=== PATIENT | male | born 1950 | race Caucasian/White ===

== ENCOUNTER → 2018-01-10 | Outpatient (CLI) | payer MEDICARE ==
[~2018-01-10] MED LIST: ALPR0.25 PO; AMIT10TA6 PO; AMIT50TA3 PO; ASPI-516 CHEW; BOSW5TAB PO; BRIL90TA PO; CALC1TAB87 PO; CARV3.12 PO; COLA100C5 PO; CYCL10TA PO; DEXI60CA3; DEXI60CA3 PO; FLUT50SP EACH NARE; HYDR-3583 PO; LATA0.002 EACH EYE; LEVO137T2 PO; LEVOTAB PO; LOSA25TA PO; MULT-65 PO; OSTETAB12 PO; PRAV10TA PO; ROSU10 PO; SIME180C2 PO; TRAM50TA PO
--- NOTE | 2018-01-10 09:21 | RADRPT ---
EXAM DATE/TIME: 01/10/2018 09:08 [facility] COMPARISON: No previous studies available for comparison. INDICATIONS : Evaluate for pneumonia, pneumothorax, and communicable diseases. Pre-op lumbar surgery. MEDICAL HISTORY : None. SURGICAL HISTORY : Rib resection, stent. ENCOUNTER: Initial ACUITY: 1 day PAIN SCORE: 0/10 LOCATION: Bilateral chest FINDINGS: PA and lateral views of the chest demonstrate the lungs to be symmetrically aerated without evidence of mass, infiltrate or effusion. The cardiomediastinal contours are unremarkable. Osseous structure s are intact. CONCLUSION: No acute disease. Pal Johnson MD on January 10, 2018 at 9:19 Board Certified Radiologist. This report was verified electronically.
[2018-01-10 09:48] LABS: BILIRUBIN, URINE NEG (NEG); BLOOD, URINE NEG (NEG); GLUCOSE,URINE NEG (NEG); KETONE, URINE NEG (NEG); MUCUS URINE FEW /lpf (OCC); NITRITE,URINE NEG (NEG); PH, URINE 5.5 (5.0-8.5); URINE COLOR YELLOW (YELLW/STRAW); URINE LEUKOCYTE ESTERASE NEG (NEG)
[2018-01-10 09:51] LABS: AUTOMATED NEUTROPHIL # 4.5 TH/MM3 (1.8-7.7); BASOPHIL % 0.5 % (0.0-2.0); EOSINOPHIL # 0.2 TH/MM3 (0-0.4); EOSINOPHIL % 3.2 % (0.0-4.0); HEMATOCRIT 34.1 % (39.0-51.0); HEMOGLOBIN 11.5 GM/DL (13.0-17.0); LYMPH % 13.4 % (9.0-44.0); LYMPHOCYTE # 0.8 TH/MM3 (1.0-4.8); MEAN CELL VOLUME 91.8 FL (80.0-100.0); MEAN CORPUSCULAR HGB CONC 33.8 % (32.0-36.0); MONO % 8.1 % (0.0-8.0); MONOCYTE # 0.5 TH/MM3 (0-0.9); NEUT % 74.8 % (16.0-70.0); PLATELET COUNT 444 TH/MM3 (150-450); RED BLOOD COUNT 3.72 MIL/MM3 (4.50-5.90); RED CELL DISTRIBUTION WIDTH 13.6 % (11.6-17.2)
[2018-01-10 10:07] LABS: PROTHROMBIN TIME - PATIENT 10.1 SEC (9.8-11.6)
[2018-01-10 10:18] LABS: ALBUMIN 3.3 GM/DL (3.4-5.0); AST (GOT) 16 U/L (15-37); BICARBONATE 31.9 MEQ/L (21.0-32.0); BLOOD UREA NITROGEN 23 MG/DL (7-18); CALCIUM 9.3 MG/DL (8.5-10.1); CHLORIDE 106 MEQ/L (98-107); GLOMERULAR FILTRATION RATE 60 ML/MIN (>89); GLUCOSE,FASTING 100 MG/DL (74-99); SODIUM (NA) 142 MEQ/L (136-145)
[2018-01-10 10:19] LABS: ALT (GPT) 28 U/L (12-78)
[2018-01-10 10:22] LABS: ALKALINE PHOSPHATASE 88 U/L (45-117); TOTAL BILIRUBIN ADULT 0.1 MG/DL (0.2-1.0)
--- NOTE | 2018-01-11 09:23 | EKG ---
Date Performed: 01/10/2018 Time Performed: 08:12:57 PTAGE: 67 years EKG: Sinus rhythm INDETERMINATE AXIS MODERATE T-WAVE ABNORMALITY, CONSIDER ANTERIOR ISCHEMIA ABNORMAL ECG Compared to PREVIOUS TRACING , anterior T-wave inversion is now present. Consider anterior ischemia. PREVIOUS TRACIN01/24/2006 14.39 DOCTOR: Vineet Enciso Interpretating Date/Time 01/11/2018 09:23:03
== END ==
LOC: CPRE 07:47
PROVIDERS: ATTEND Neurological Surgery
DX: Z01.812 Encounter for preprocedural laboratory examination (principal); Z01.810 Encounter for preprocedural cardiovascular examination; Z01.811 Encounter for preprocedural respiratory examination; Z01.818 Encounter for other preprocedural examination; Z79.01 Long term (current) use of anticoagulants; M43.10 Spondylolisthesis, site unspecified
CPT/HCPCS: 36415; 71046; 80053; 81001; 85025; 85610; 85730; 87640; 87641; 93005

== ENCOUNTER 2018-01-16 06:05 | Inpatient (IN) | payer MEDICARE ==
[~2018-01-16] VITALS: Ht 172.7 cm; Wt 67.5 kg
[~2018-01-16 06:05] MED LIST changes: -ALPR0.25 PO; -DEXI60CA3; -HYDR-3583 PO; -LATA0.002 EACH EYE; -OSTETAB12 PO; -PRAV10TA PO
[2018-01-16] MEDS: SODIUM CHLOR 0.9% 1000 ML INJ 1,000 ML IV SCH (06:30)
[2018-01-16] MEDS ORDERED: LACTATED RINGER'S 1000 ML IV PRN (06:30)
[2018-01-16] MEDS ORDERED: VANCOMYCIN 1000 MG/NS 250 ML ON-CALL IV SCH ×2 (06:30)
[2018-01-16] MEDS ORDERED: METOPROLOL TARTRATE 25 MG TAB PO PRN (06:30)
[2018-01-16] MEDS ORDERED: POVIDONE IODINE 5% (ANTISEPSIS KIT) 4 APPLICATIONS EACH NARE PRN (06:30)
[2018-01-16] MEDS ORDERED: CHLORHEXIDINE GLUCONATE 2 % 1 PACK (2 CLOTHS) TOPICAL PRN (06:30)
[2018-01-16] MEDS ORDERED: SODIUM CHLORID 0.9% 500 ML IV PRN (06:30)
[2018-01-16] MEDS ORDERED: ACETAMINOPHEN 1000 MG/100 ML 100 ML IV ONE (07:03)
[2018-01-16] MEDS ORDERED: PROPOFOL 500 MG/50 ML INJ 150 ML ONE (07:03)
[2018-01-16] MEDS ORDERED: SUFentanil INJ 250 MCG/5 ML AMP ONE (07:04)
[2018-01-16] MEDS ORDERED: LATA0.002 EACH EYE (07:04)
[2018-01-16] MEDS ORDERED: ARTIFICIAL TEARS OPTH OINT 3.5 APPLIC/3.5 GM TUBO ONE (07:04)
[2018-01-16] MEDS ORDERED: HYDROmorphone HCL PF 2 MG/ML VIAL ONE (07:05)
[2018-01-16] MEDS ORDERED: ceFAZolin 2 GM PREMIX 100 ML ONE (07:19)
[2018-01-16] MEDS ORDERED: VANCOMYCIN HCL 1000 MG VIAL ONE (07:19)
[2018-01-16] MEDS ORDERED: THROMBIN (TOPICAL) 5,000 UNIT VIAL ONE (07:19)
[2018-01-16] MEDS ORDERED: GENTAMICIN SULFATE 80 MG/2 ML VIAL ONE (07:20)
[2018-01-16] MEDS ORDERED: GELFOAM SIZE 100 ONE (07:20)
[2018-01-16] MEDS ORDERED: BUPIVACAINE/EPINEPHRINE 0.5% PF 30 ML VIAL ONE (07:20)
[2018-01-16] MEDS ORDERED: HEPARIN SODIUM - SQ 10,000 UNITS/ML VIAL ONE (07:20)
[2018-01-16] MEDS ORDERED: PROPOFOL 200 MG/20 ML AMP IV ONE (12:00)
[2018-01-16] MEDS ORDERED: ONDANSETRON HCL 4 MG/2 ML VIAL IV ONE (12:00)
[2018-01-16] MEDS ORDERED: ROCURONIUM INJ 50 MG/5 ML SYRINGE IV PUSH ONE (12:00)
[2018-01-16] MEDS ORDERED: NORMOSOL R INJ 1,000 ML IV ONE (12:00)
[2018-01-16] MEDS ORDERED: ceFAZolin INJ 1,000 MG VIAL IV ONE (12:00)
[2018-01-16] MEDS ORDERED: LIDOCAINE HCL 1% PF 5 ML SYRINGE OTHER ONE (12:00)
[2018-01-16] MEDS ORDERED: DEXAMETHASONE SOD PHOS 4 MG/ML VIAL IV ONE (12:00)
[2018-01-16] MEDS ORDERED: SODIUM CHLOR 0.9% 250 ML INJ 250 ML IV ONE (12:00)
[2018-01-16] MEDS ORDERED: LACTATED RINGER'S 1000 ML INJ 2,000 ML IV ONE (12:00)
[2018-01-16] MEDS ORDERED: METOPROLOL TARTRATE 5 MG/5 ML VIAL IV ONE (12:00)
[2018-01-16] MEDS ORDERED: PHENYLEPH/NS 1000 MCG/10 ML SYR IV ONE (12:00)
[2018-01-16] MEDS ORDERED: ESMOLOL HCL 100 MG/10 ML VIAL IV ONE (12:00)
[2018-01-16] MEDS ORDERED: PHENYLEPHRINE HCL 10 MG/ML VIAL IV ONE (12:00)
[2018-01-16] MEDS ORDERED: SODIUM CHLORID 0.9% 500 ML INJ 500 ML IV ONE (12:00)
[2018-01-16] MEDS ORDERED: ceFAZolin INJ 1,000 MG VIAL IRRIGATION ONE (14:22)
[2018-01-16 14:48] LABS: HEMATOCRIT 31.8 % (39.0-51.0); HEMOGLOBIN 10.9 GM/DL (13.0-17.0)
[2018-01-16] MEDS ORDERED: DO NOT ADM ANY ANTICOAGULANT DRUGS PRN (16:39)
[2018-01-16] MEDS ORDERED: MIDAZOLAM HCL 2 MG/2 ML VIAL ONE (16:49)
[2018-01-16] MEDS ORDERED: MORPHINE SULFATE 4 MG/ML INJ ONE (16:49)
[2018-01-16] MEDS ORDERED: PCA - TOTAL MG DILAUDID DELIVERED PER SHIFT SCH (17:15)
[2018-01-16] MEDS ORDERED: RESP: ALBUTEROL 2.5 MG/3 ML NEB (PRN) INH (17:15)
[2018-01-16] MEDS ORDERED: NALOXONE HCL 0.4 MG/ML AMP IV PUSH PRN ×2 (17:15→19:00)
[2018-01-16] MEDS ORDERED: MORPHINE SULFATE 4 MG/ML INJ IV PUSH PRN ×2 (17:15)
[2018-01-16] MEDS ORDERED: HYDROmorphone HCL PCA 6 MG/30 ML IV SCH (17:15)
[2018-01-16] MEDS ORDERED: diphenhydrAMINE HCL 50 MG/ML VIAL IV PUSH PRN (17:15)
[2018-01-16] MEDS ORDERED: ACETAMINOPHEN 325 MG TAB PO PRN (17:15)
[2018-01-16] MEDS ORDERED: MORPHINE SULFATE 30 MG/30 ML PCA ONE (17:40)
--- NOTE | 2018-01-16 17:43 | PD.OP ---
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 Microsurgical dissection Anesthesia: general Surgeon: Hamilton Jones Ginning Operator(s): Shruti Whitehead Operation and Findings: INDICATIONS FOR THE SURGICAL PROCEDURE Mr Monique is a 67 year-old male who presented with intractable mechanical back pain and hernandez evidence of L2, L3, L4 lower extremity radiculopathy. He had history of a L4-5, L5-S1 laminectomy and fusion done years ago. He has failed maximum nonsurgical management including multiple modalities of conservative treatment as well as pain management interventions by an interventional pain specialist. A surgical decompression and arthrodhesis were indicated as a last resort. The [id number] details of the procedure, indications, alternatives, risks and potential complications were fully discussed with the patient. The patient fully understood. All the questions were answered. No guarantees were given. He voiced requesting the procedure and provided informed consents. He was offered the alternative of delaying the procedure and continuing with nonsurgical management. DETAILS OF THE SURGICAL PROCEDURE Prior to the procedure, the procedure, risks, and potential complications revisited with the patient. Placement of electrodes for intraoperative neurophysiological monitoring was completed. The patient was taken to the operative room, and following induction of general anesthesia, endotracheal intubation was performed. A Best catheter, bilateral MAXIMO hose and sequential compression devices were placed and kept throughout the procedure. The patient was positioned prone, over a Khai table over a bolsters. All pressure in the preoperative surgical holding room points were carefully padded with eggcrate and gel mattress. The eyes were tapped shut after ointment was applied by the anesthesiologist to prevent corneal abrasion. A Tracy hugger was placed over the expossed lower body to maintain control of the core body temperature. The electrophysiological team placed the needles and electrodes in their proper location and baseline SSEP's and motor evoked potentials were registered. The entrance to each pedicles was marked using a C arm. The lumbar region was prepped and draped in the usual sterile fashion. The surgical procedure was performed in several steps as follow: SURGICAL APPROACH Once the patient was positioned, a localizing cross-table lateral and AP x-ray was performed with a C-arm. Two paramedian small incisions were outlined on the skin approximately 3cm from the midline. The skin incisions were made with a # 10 blade. Small bleeders were controlled with the cautery. The dissection was then carried out into deeper planes and through the thoracolumbar fascia with a Bovie. The intermuscular septum was identified and the muscles were blunted dissected along the septum. The facets and transverse process of L1-L2, L2-L3, L3-4 were exposed and the proper anatomical landmarks were identidied. A microsurgical self-retaining retractor was placed on the incision, and a localizing lateralizing cross-table x-ray was performed with an instrument underneath a lamina of the lumbar spine of L4. The prior instrumentation was carefully exposed and a self-retaining retractor was placed on each incision. At this point of the procedure, the rods were cut, just above the cross link of the prior instrumentation. Then, the caps of the previously placed screws were sequentially removed allowing removal of the rods, as the prior rods were larger , and not compatible with the current contemporary instrumentation. INSTRUMENTAL FIXATION At this point in the procedure, placement of bilateral transpedicular screws was necessary for stabilization of the spine. Initially, the entry point for the screw was selected anatomically at the junction of the facet, with the transverse process, and the pars interarticularis at L1, L2, L3, and L4. This was started with a Giamshetti needle, followed by the use of K wire. A tap was used to create the threads for the screws. Finally bilateral transpedicular screws were carefully placed bilaterally at L1, L2, L3, and L4 under fluoroscopic visualization. An appropriate purchase was achieved with all screws. The position of each screw was assessed anatomically with an AP, lateral , oblique Xrays. An intraoperative scan view of the spine was then performed using the iso-centric c-arm. Each screw was then assessed electrophysiologically stimulating each screw with a nerve stimulator. SURGICAL DECOMPRESSION There was significant mass effect with compression of the neural structures. In order to relieve neural compression, it was necessary to perform a decompressive laminectomy, with decompression of the spinal canal and bilateral lateral recesses. Note that the scope of such decompression was significantly more extensive than the minimal exposure necessary to perform an interbody fusion, as there was extreme facet arthropathy with severe degeneration of the disk spaces and stenosis cause by the hyperthrophic joint facets. At this point of the procedure the operative microscope was draped in the usual sterile fashion and brought to the field. The rest of the surgical procedure was performed using microdissection technique with the exception of the closure. Under the operating microscope, a bilateral decompressive laminectomy was carried out at L1-L2, L2-L3, L3-4 as follow: The laminae, base of the spinous processes and facets were carefully drilled exposing the ligamentum flavum. The facets were abnormal with severe spondylolisthesis and gross mechanical instability. A large disk protusion was compressing the neural structures and exiting nerve roots at each level. A near complete facetectomy was necessary resulting in further mechanical instability. The ligamentum flavum appeared hypertrophic, resulting on mass effect on the dorsal surface of the neural structures. The superior free border of the ligamentum flavum was elevated with a ligament dissector and the ligamentum flavum was removed with a 3 and 4 mm Kerrison forceps. The ligament was very adherent to the dural sac and during the dissection, ans extreme care was taken during the dissection. The exiting nerve roots were identified, and a wide foraminotomy was performed with a Kerrison in their trajectory towards the neural foramen. Epidural veins located laterally to the dural sac were coagulated with the bipolar cautery, and then incised using microscissors. Gentle medial retraction of the dural sac allowed me to expose the disc space for the discectomy. Upon completion of the discectomy, an excellent decompression of the neural structures was achieved. Increased motion was noted thorough the procedure, which was consistent with mechanical instability at L1-L2, L2-L3, L3-4. INTERBODY ARTHRODHESIS In order to correct the narrowing of the disk space and maintain distraction of the space, and to achieve a solid interbody fusion, it was necessary the insertion of an interbody device into the disk space. Otherwise, the disk space would collapse, compromising the result of the surgical procedure. At this point of the procedure, the annulus fibrosus of the disk was carefully coagulated with a bipolar cautery and incised using an 11 bladed knife. Then, a microdiscectomy was carried out in a standard fashion using a combination of straight and up-biting pituitary forceps. A reverse angle curette was applied underneath the posterior longitudinal ligament, and used to push the disk fragments into the disk space, so they can be safely removed with a pituitary forceps. Once the discectomy was completed, it was necessary to decorticate the endplates, in order to eliminate the cartilaginous endplate and to expose healthy bone appropriate to perform the interbody fusion. The endplates at L1-L2 , L2-L3, L3-4 were then thoroughly decorticated using increasing size bone karma and ring curets, eliminating the cartilaginous fragments from both, the superior and inferior endplates. A disk space distractor was applied to the pedicle screws and gentle distraction was applied. This maneuver was assisted by the use of a disk distractor. Increased motility was noted at the disk, which was consistent with instability due to facet arthropathy. Once a thorough preparation of the disk space was achieved, the disk space was irrigated with antibiotic solution, and the interbody fusion was performed by carefully impacting PPEK cages filled with autologous iliac crest bone graft. The use of several shoe impactors with different angulation, allowed me for an excellent, proper position of the interbody cages L1-L2, L2-L3, L3-4. A solid position of the cage with good purchase was achieved. The position of the cages were assessed anatomically with a probe and radiologically with the C-arm. POSTEROLATERAL FUSION The posterolateral fusion is a critical component to the procedure, to prevent future fatigue and failure of the instrumental fixation. Initially, the transverse processes of the vertebral bodies, lateral surface of the facets and the lateral gutters of the spine were carefully cleaned, eliminating all soft tissue and muscle attachments. The area was then irrigated with a large amount of antibiotic solution. Subsequently, the transverse processes, lateral surface of the facets, and lateral gutters of the spine were thoroughly decorticated using the TPS drill with a 5mm cutting adam, exposing cancellous bone, in preparation for the posterolateral fusion. The incision was again irrigated with antibiotic solution. Then, the posterolateral fusion was then performed by carefully packing the lateral gutters of the spine at L1-L2, L2-L3, L3-L4 with autologous crest bone combined with demineralized bone matrix. I packed as much bone as possible. COMPLETION OF THE INSTRUMENTATION AND CLOSURE The rods were brought to the field, applied to all the screws, and the screw caps were sequentially applied. Compression was performed between the pedicle screws, and final tightening of the screws was completed using a torque wrench. The incision was again thoroughly irrigated with several liters of antibiotic solution, and hemostasis secured with the bipolar cautery. A Valsalva Maneuver performed by the anesthesiologist failed to show any evidence of cerebrospinal fluid leak or bleeding. A 7 mm Khai-Pena drain was left in the epidural space and externalized through a separate stab incision. The incision was then closed in planes. 0 Vicryl was used in an interrupted fashion to close the thoracolumbar fascia and the superficial fascia. The subcutaneous tissue was then approximated using 3-0 Vicryl in an interrupted fashion. Special care was taken to avoid space. The skin was then closed with 4-0 Vicryl in a running, subcuticular fashion. Dermabond was applied to the skin. Each plane of closure was irrigated with antibiotic solution. At the end of the procedure the sponge, needle and instrument counts were all correct. Estimated blood loss was 450-500 cc. No blood transfusion was given. The entire procedure was performed using continuous electrophysiological monitoring of the somatosensorial evoked potentials and EMG. The patient received prophylactic antibiotics. The patient was then extubated and transferred to the recovery room in stable condition. Hamilton Jones MD Jan 16, 2018 17:43
[2018-01-16 17:56] LABS: HEMATOCRIT 32.7 % (39.0-51.0); HEMOGLOBIN 10.9 GM/DL (13.0-17.0); MEAN CELL VOLUME 91.9 FL (80.0-100.0); MEAN CORPUSCULAR HEMOGLOBIN 30.6 PG (27.0-34.0); MEAN CORPUSCULAR HGB CONC 33.3 % (32.0-36.0); MEAN PLATELET VOLUME 7.5 FL (7.0-11.0); PLATELET COUNT 262 TH/MM3 (150-450); RED BLOOD COUNT 3.56 MIL/MM3 (4.50-5.90); WHITE BLOOD COUNT 15.7 TH/MM3 (4.0-11.0)
[2018-01-16] MEDS: NS + KCL 20 MEQ INJ 1,000 ML IV SCH (18:00)
[2018-01-16 18:14] LABS: BICARBONATE 24.7 MEQ/L (21.0-32.0); CALCIUM 8.5 MG/DL (8.5-10.1); CREATININE 1.28 MG/DL (0.60-1.30)
[2018-01-16 20:00] VITALS: BP 127/85; PULSE 88; RESP 18; TEMP 97.1; O2SAT 100
[2018-01-16] MEDS ORDERED: SIMETHICONE 180 MG PO PRN (20:00)
[2018-01-16] MEDS ORDERED: SIMETHICONE 125 MG CHEWABLE TAB PO PRN (20:00)
--- NOTE | 2018-01-16 20:26 | RADRPT ---
EXAM DATE/TIME: 01/16/2018 10:02 [facility] COMPARISON: No previous studies available for comparison. INDICATIONS : L1-2, L2-3, L3-4 posterior fusion. MEDICAL HISTORY : Carcinoma, thyroid. Myocardial infarction. SURGICAL HISTORY : Fusion, cervical. Fusion, lumbar. ENCOUNTER: Initial ACUITY: 1 day PAIN SCORE: Non-responsive. LOCATION: Lumbar spine. FINDINGS: 3 images of the lumbar region recorded digitally using C-arm in the operating room after placement of multilevel transpedicular screws. CONCLUSION: Intraoperative images. Jaime Carrasquillo MD on January 16, 2018 at 20:24 Board Certified Radiologist. This report was verified electronically.
[2018-01-16] MEDS: TICAGRELOR 90 MG TAB PO SCH (21:00)
[2018-01-16] MEDS: LATANOPROST 0.005% OPHT SOLN 2.5 ML BTL EACH EYE SCH (21:00)
[2018-01-16] MEDS: CARVEDILOL 3.125 MG TAB PO SCH (21:34)
[2018-01-16] MEDS: CYCLOBENZAPRINE HCL 10 MG TAB PO SCH (21:34)
[2018-01-16] MEDS: ceFAZolin 2 GM PREMIX 50 ML IV SCH (21:34)
[2018-01-16] MEDS: AMITRIPTYLINE HCL 10 MG TAB PO SCH (21:43)
[2018-01-16] MEDS: PCA - TOTAL MG MORPHINE DELIVERED PER SHIFT SCH (21:59)
[2018-01-17] VITALS (7 sets, daily range): BP systolic 99–125; BP diastolic 62–80; PULSE 80–107; RESP 17–18; TEMP 97.6–98.3; O2SAT 92–100
[2018-01-17] MEDS: ceFAZolin 2 GM PREMIX 50 ML IV SCH ×2 (03:37→14:01)
[2018-01-17] MEDS: NS + KCL 20 MEQ INJ 1,000 ML IV SCH ×3 (03:37→23:58)
[2018-01-17] MEDS: MORPHINE SULFATE 30 MG/30 ML PCA IV SCH ×3 (03:50→20:51)
[2018-01-17] MEDS: PCA - TOTAL MG MORPHINE DELIVERED PER SHIFT SCH ×3 (06:00→21:11)
[2018-01-17] MEDS: SODIUM CHLOR 0.9% 1000 ML INJ 1,000 ML IV SCH (06:30)
[2018-01-17] MEDS: LEVOTHYROXINE SODIUM 25 MCG TAB PO SCH (06:38)
[2018-01-17] MEDS: LEVOTHYROXINE SODIUM 112 MCG TAB PO SCH (06:38)
[2018-01-17 07:50] LABS: AUTOMATED NEUTROPHIL # 6.2 TH/MM3 (1.8-7.7); BASOPHIL % 0.1 % (0.0-2.0); EOSINOPHIL # 0.1 TH/MM3 (0-0.4); EOSINOPHIL % 1.4 % (0.0-4.0); HEMATOCRIT 26.8 % (39.0-51.0); HEMOGLOBIN 9.1 GM/DL (13.0-17.0); LYMPH % 12.7 % (9.0-44.0); MEAN CELL VOLUME 91.8 FL (80.0-100.0); MEAN CORPUSCULAR HEMOGLOBIN 31.2 PG (27.0-34.0); MONO % 8.6 % (0.0-8.0); MONOCYTE # 0.7 TH/MM3 (0-0.9); NEUT % 77.2 % (16.0-70.0); PLATELET COUNT 187 TH/MM3 (150-450); RED BLOOD COUNT 2.92 MIL/MM3 (4.50-5.90); RED CELL DISTRIBUTION WIDTH 14.2 % (11.6-17.2); WHITE BLOOD COUNT 8.1 TH/MM3 (4.0-11.0)
[2018-01-17 08:23] LABS: BICARBONATE 27.7 MEQ/L (21.0-32.0); CALCIUM 7.4 MG/DL (8.5-10.1); CREATININE 1.25 MG/DL (0.60-1.30)
[2018-01-17 08:35] LABS: CALCIUM-PROTEIN CORRECTED 8.4 MG/DL (8.5-10.1); TOTAL PROTEIN 5.3 GM/DL (6.4-8.2)
[2018-01-17] MEDS: TICAGRELOR 90 MG TAB PO SCH ×2 (08:44→21:00)
[2018-01-17] MEDS: CARVEDILOL 3.125 MG TAB PO SCH ×2 (08:45→21:03)
[2018-01-17] MEDS: LOSARTAN 25 MG TAB PO SCH (08:45)
[2018-01-17] MEDS: CYCLOBENZAPRINE HCL 10 MG TAB PO SCH ×3 (08:46→17:34)
[2018-01-17] MEDS: PANTOPRAZOLE SOD 40 MG DELAYED RELEASE TAB PO SCH (08:46)
[2018-01-17] MEDS: DOCUSATE SODIUM 100 MG CAP PO SCH (08:46)
[2018-01-17] MEDS: ATORVASTATIN 20 MG TAB PO SCH (08:46)
[2018-01-17] MEDS: MULTIVITAMIN TAB PO SCH (08:47)
[2018-01-17] MEDS: CETIRIZINE HCL 10 MG TAB PO SCH (08:47)
[2018-01-17] MEDS: CALCIUM/VITAMIN D 250 MG/125 U TAB PO SCH (08:50)
[2018-01-17] MEDS ORDERED: PANTOPRAZOLE SODIUM 40 MG VIAL IVP SCH (09:00)
[2018-01-17] MEDS ORDERED: D3 PO SCH (09:00)
[2018-01-17] MEDS ORDERED: BOSWELLIA SERRA PO SCH (09:00)
[2018-01-17] MEDS ORDERED: GLUCOSAMINE PO SCH (09:00)
[2018-01-17] MEDS ORDERED: CALCIUM CHLORIDE INJ 1 GM in SODIUM CHLORIDE 0.9% INJ 100 ML IV ONE (09:45)
[2018-01-17] MEDS ORDERED: HYDR-3583 PO (10:35)
[2018-01-17] MEDS ORDERED: MORPHINE SULFATE 2 MG/ML INJ IV PUSH PRN (13:45)
[2018-01-17] MEDS ORDERED: ACETAMINOPHEN/HYDROcodone 325 MG/10 MG TAB PO PRN (13:45)
--- NOTE | 2018-01-17 13:47 | HHI.NSPN ---
(Charlee Esteves) Note Status Status: Progress Note (Charlee Esteves) Interval History Interval History Mr. Monique is s/p L1-L2, L2-L3, L3-L4 laminectomy, interbody arthrodhesis using PEEK cage and autologous bone graft, L3-4, L4-L5 instrumental fixation using transpedicular screws and rods, L1-L2, L2-L3, L3-L4 posterolateral fusion using autologous bone graft and demineralized bone matrix, microsurgical dissection on Jan 16, 2018 for degenerative spondylolisthesis 01/17: doing well, surgical pain controlled on ICU RN, awaiting custom brace but requesting to get out of bed now (Charlee Esteves) Labs, Micro, & Vital Signs Results Date Time Temp Pulse Resp B/P (MAP) Pulse Ox O2 Delivery O2 Flow Rate FiO2 01/17/18 11:51 19 01/17/18 09:28 98 Nasal Cannula 3.00 01/17/18 08:00 98.0 94 18 101/75 (84) 98 01/17/18 06:00 14 01/17/18 05:00 97.6 94 18 99/64 (76) 100 01/17/18 04:48 Nasal Cannula 3.00 01/17/18 03:50 14 01/17/18 00:00 98.0 80 17 125/80 (95) 100 01/16/18 21:59 14 01/16/18 20:00 97.1 88 18 127/85 (99) 100 01/16/18 18:45 98.0 88 16 125/87 (100) 100 Nasal Cannula 3 01/16/18 18:15 87 16 126/87 (100) 100 Nasal Cannula 3 01/16/18 17:45 86 15 122/80 (94) 100 Nasal Cannula 3 01/16/18 17:30 90 16 122/85 (97) 100 Nasal Cannula 3 01/16/18 17:15 95 16 127/82 (97) 99 Nasal Cannula 3 01/16/18 17:00 87 17 121/89 (100) 99 Nasal Cannula 3 01/16/18 16:45 90 15 121/89 (100) 97 Nasal Cannula 3 01/16/18 16:39 97.6 107 15 117/83 (94) 94 Nasal Cannula 3 01/18/18 07:00 Intake Total 110 ml Output Total 90 ml Balance 20 ml Constitutional Vital Signs Date Time Temp Pulse Resp B/P (MAP) Pulse Ox O2 Delivery O2 Flow Rate FiO2 01/17/18 11:51 19 01/17/18 09:28 98 Nasal Cannula 3.00 01/17/18 08:00 98.0 94 18 101/75 (84) 98 01/17/18 06:00 14 01/17/18 05:00 97.6 94 18 99/64 (76) 100 01/17/18 04:48 Nasal Cannula 3.00 01/17/18 03:50 14 01/17/18 00:00 98.0 80 17 125/80 (95) 100 01/16/18 21:59 14 01/16/18 20:00 97.1 88 18 127/85 (99) 100 01/16/18 18:45 98.0 88 16 125/87 (100) 100 Nasal Cannula 3 01/16/18 18:15 87 16 126/87 (100) 100 Nasal Cannula 3 01/16/18 17:45 86 15 122/80 (94) 100 Nasal Cannula 3 01/16/18 17:30 90 16 122/85 (97) 100 Nasal Cannula 3 01/16/18 17:15 95 16 127/82 (97) 99 Nasal Cannula 3 01/16/18 17:00 87 17 121/89 (100) 99 Nasal Cannula 3 01/16/18 16:45 90 15 121/89 (100) 97 Nasal Cannula 3 01/16/18 16:39 97.6 107 15 117/83 (94) 94 Nasal Cannula 3 01/18/18 07:00 Intake Total 110 ml Output Total 90 ml Balance 20 ml (Charlee Esteves) Physical Exam Mr. Monique is alert, awake and oriented. Speech is fluent. Cranial nerve: pupil equal, round and reactive to light. Extra-ocular movements are intact.Facial motor are normal and symmetrical. Gross hearing appears intact. Motor: moving all four extremities well Heart: regular rate Resp: clear Skin: no cyanosis, warm and dry (Charlee Esteves) Medications Current Medications Current Medications Medications (Trade) Dose Ordered Sig/Edmund Route PRN Reason Start Time Stop Time Status Last Admin Dose Admin Metoprolol Tartrate (Lopressor) 25 mg BUSINESS SOLUTION ANALYST PRN PO SEE LABEL COMMENTS 01/16/18 06:30 01/19/18 06:29 Sodium Chloride 1,000 ml @ 30 mls/hr Q24H IV 01/16/18 06:30 Potassium Chloride/Sodium Chloride 1,000 ml @ 100 mls/hr Q10H IV 01/16/18 19:00 01/17/18 03:37 Pantoprazole Sodium (Protonix Inj) 40 mg DAILY IVP 01/17/18 09:00 Morphine Sulfate (Morphine Inj) 2 mg Q2H PRN IV PUSH PAIN SCALE 1 TO 6 01/16/18 17:15 Morphine Sulfate (Morphine Inj) 4 mg Q2H PRN IV PUSH PAIN SCALE 7 TO 10 01/16/18 17:15 01/17/18 03:35 Acetaminophen (Tylenol) 650 mg Q4H PRN PO TEMPERATURE > 101.5 F 01/16/18 17:15 Albuterol Sulfate (Albuterol Neb) 2.5 mg Q4HR NEB PRN INH WHEEZING 01/16/18 17:15 Amitriptyline HCl (Elavil) 10 mg HS PO 01/16/18 21:00 01/16/18 21:43 Calcium/Vitamin D (Oscal-D 250-125) 1 mg DAILY PO 01/17/18 09:00 Carvedilol (Coreg) 3.125 mg BID PO 01/16/18 21:00 01/17/18 08:45 Cyclobenzaprine HCl (Flexeril) 10 mg TID PO 01/16/18 18:00 01/17/18 08:46 Docusate Sodium (Colace) 100 mg DAILY PO 01/17/18 09:00 01/17/18 08:46 Latanoprost (Xalatan 0.005% Opt Soln) 1 drop HS EACH EYE 01/16/18 21:00 Losartan Potassium (Cozaar) 25 mg DAILY PO 01/17/18 09:00 Ticagrelor (Brilinta) 90 mg BID PO 01/16/18 21:00 Pantoprazole Sodium (Protonix) 40 mg DAILY PO 01/17/18 09:00 Cetirizine HCl (ZyrTEC) 10 mg DAILY PO 01/17/18 09:00 01/17/18 08:47 Levothyroxine Sodium (Synthroid) 112 mcg DAILY@0600 PO 01/17/18 06:00 01/17/18 06:38 Multivitamins (Theragran) 1 tab DAILY PO 01/17/18 09:00 01/17/18 08:47 Atorvastatin Calcium (Lipitor) 20 mg DAILY PO 01/17/18 09:00 01/17/18 08:46 Miscellaneous Information ALL NURSING DEPARTME... UNSCH PRN .XX SEE LABEL COMMENTS 01/16/18 16:39 01/17/18 16:38 Morphine Sulfate (Morphine 1 Mg/ ml ICU RN) 30 mg UNSCH IV 01/16/18 19:00 01/17/18 11:51 ICU RN Dosage Infused (Pha) 1 Q8HR .XX 01/16/18 22:00 01/17/18 06:00 Naloxone HCl (Narcan Inj) 0.4 mg UNSCH PRN IV PUSH RESPIRATORY RATE LESS THAN 10 01/16/18 19:00 Levothyroxine Sodium (Synthroid) 25 mcg DAILY@0600 PO 01/17/18 06:00 01/17/18 06:38 Simethicone (Phazyme Chew) 187.5 mg QID PRN PO GAS RETENTION 01/16/18 20:00 (Charlee Esteves) Medical Decision Making MDM Remarks 67 y/o male s/p L1-L2, L2-L3, L3-L4 laminectomy, interbody arthrodhesis using PEEK cage and autologous bone graft, L3-4, L4-L5 instrumental fixation using transpedicular screws and rods, L1-L2, L2-L3, L3-L4 posterolateral fusion using autologous bone graft and demineralized bone matrix, microsurgical dissection 01/16/18 (Charlee Esteves) Plan Plan Remarks cont current pain regimen PT, TLSO when out of bed cont SCDs and TEDs for dvt prophylaxis dc hyde once ambulatory IS every hour cont CATY draining (Charlee Esteves) Attending Statement The exam, history, and the medical decision-making described in the above note were completed with the assistance of the mid-level provider. I reviewed and agree with the findings presented. I attest that I had a [id number] encounter with the patient on the same day, and personally performed and documented my assessment and findings in the medical record. (Hamilton Jones MD) Charlee Esteves Jan 17, 2018 13:47 Hamilton Jones MD Jan 18, 2018 20:58
--- NOTE | 2018-01-17 15:44 | PD.CONS ---
HPI Service [facility] Consult Requested By Dr Jones Reason for Consult Medical management. Primary Care Physician Dayday Holliday MD Diagnoses: History of Present Illness This is a 67 yo male with pmh of CAD, hypothyroidism, previous lumbar laminectomy who presents to [facility] for elective lumbar spine surgery. The patient states was having severe lumbar spine and observable deformity at the lumbar spine which progressively got worst. The patient underwent lumbar spine fusion. Complains of back pain worst with movement. Denies cp/sob, fevers, chills. Review of Systems As per HPI, other systems reviewed by me and negative. Past Family Social History Allergies: Coded Allergies: metoclopramide (Verified Allergy, Severe, EFFECTS NERVES, 01/16/18) hydromorphone (Verified Adverse Reaction, Severe, SEVERE NAUSEA, 01/16/18) promethazine (Verified Adverse Reaction, Severe, NAUSEA, 01/16/18) Past Medical History 1. CAD. 2. Hypertension. 3. GA status post stent placement. 4. Hypothyroidism. 5. Glaucoma. Past Surgical History 1. Cardiac stent in 2002. 2. History of lumbar laminectomy. 3. C5-C6 and C6 that 7 anterior cervical discectomy and arthrodesis. Reported Medications Reported Meds & Active Scripts Active Hydrocodone-Acetaminophen 10-325 mg Tab 1 Tab PO Q8HR Reported Latanoprost Opth Drops (Latanoprost) 0.005% Drops 1 Drop EACH EYE HS Refrigerate until opened. Tramadol (Tramadol HCl) 50 Mg Tab 50 Mg PO Q4H PRN Osteo Bi-Flex Caplet (Glucosamine/D3/Boswellia Rosy) 1,500 Mg-400 Unit-100 Mg Tablet 1 Cap PO DAILY Dexilant (Dexlansoprazole) 60 Mg Luis.bp 60 Mg PO DAILY Crestor (Rosuvastatin Calcium) 10 Mg Tab 10 Mg PO DAILY Multi-Vitamin Daily (Multiple Vitamin) 1 Tab Tab 1 Tab PO DAILY Colace (Docusate Sodium) 100 Mg Capsule 100 Mg PO DAILY Flexeril (Cyclobenzaprine HCl) 10 Mg Tab 10 Mg PO TID Simethicone 180 Mg Cap 180 Mg PO QID PRN Calcium 600 with Vitamin D (Calcium Carbonate-Cholecalciferol) 600-400 mg-Unit Tab 1 Tab PO DAILY Levocetirizine 5 Mg Tab 5 Mg PO DAILY Amitriptyline (Amitriptyline HCl) 10 Mg Tab 10 Mg PO HS Aspirin 81 Mg Chew 81 Mg CHEW DAILY Levothyroxine (Levothyroxine Sodium) 137 Mcg Tab 137 Mcg PO DAILY Losartan (Losartan Potassium) 25 Mg Tab 25 Mg PO DAILY Carvedilol 3.125 Mg Tab 3.125 Mg PO BID Brilinta (Ticagrelor) 90 Mg Tab 90 Mg PO BID Active Ordered Medications Current Medications Medications (Trade) Dose Ordered Sig/Edmund Route Start Time Stop Time Status Last Admin (Lopressor) 25 mg RFID MANAGER PRN PO 01/16/18 06:30 01/19/18 06:29 Sodium Chloride 1,000 ml @ 30 mls/hr Q24H IV 01/16/18 06:30 Potassium Chloride/Sodium Chloride 1,000 ml @ 100 mls/hr Q10H IV 01/16/18 19:00 01/17/18 14:08 (Tylenol) 650 mg Q4H PRN PO 01/16/18 17:15 (Albuterol Neb) 2.5 mg Q4HR NEB PRN INH 01/16/18 17:15 (Elavil) 10 mg HS PO 01/16/18 21:00 01/16/18 21:43 (Oscal-D 250-125) 1 mg DAILY PO 01/17/18 09:00 (Coreg) 3.125 mg BID PO 01/16/18 21:00 01/17/18 08:45 (Flexeril) 10 mg TID PO 01/16/18 18:00 01/17/18 14:01 (Colace) 100 mg DAILY PO 01/17/18 09:00 01/17/18 08:46 (Xalatan 0.005% Opth Soln) 1 drop HS EACH EYE 01/16/18 21:00 (Cozaar) 25 mg DAILY PO 01/17/18 09:00 (Brilinta) 90 mg BID PO 01/16/18 21:00 (Protonix) 40 mg DAILY PO 01/17/18 09:00 (ZyrTEC) 10 mg DAILY PO 01/17/18 09:00 01/17/18 08:47 (Synthroid) 112 mcg DAILY@0600 PO 01/17/18 06:00 01/17/18 06:38 (Theragran) 1 tab DAILY PO 3/7/18 09:00 01/17/18 08:47 (Lipitor) 20 mg DAILY PO 01/17/18 09:00 01/17/18 08:46 Miscellaneous Information ALL NURSING DEPARTME... UNSCH PRN .XX 01/16/18 16:39 01/17/18 16:38 (Morphine 1 Mg/ ml GEAR TOOTH LAPPING MACHINE OPERATOR) 30 mg UNSCH IV 01/16/18 19:00 01/17/18 11:51 GEAR TOOTH LAPPING MACHINE OPERATOR Dosage Infused (Pha) 1 Q8HR .XX 01/16/18 22:00 01/17/18 14:00 (Narcan Inj) 0.4 mg UNSCH PRN IV PUSH 01/16/18 19:00 (Synthroid) 25 mcg DAILY@0600 PO 01/17/18 06:00 01/17/18 06:38 (Phazyme Chew) 187.5 mg QID PRN PO 01/16/18 20:00 ([place] 10-325 Mg) 1 tab Q4H PRN PO 01/17/18 13:45 ([place] 10-325 Mg) 2 tab Q4H PRN PO 01/17/18 13:45 (Morphine Inj) 2 mg Q2H PRN IV PUSH 01/17/18 13:45 Physical Exam Vital Signs Vital Signs Date Time Temp Pulse Resp B/P (MAP) Pulse Ox O2 Delivery O2 Flow Rate FiO2 01/17/18 14:00 16 01/17/18 12:00 98.3 84 18 124/70 (88) 98 01/17/18 11:51 19 01/17/18 09:28 98 Nasal Cannula 3.00 01/17/18 08:00 98.0 94 18 101/75 (84) 98 01/17/18 06:00 14 01/17/18 05:00 97.6 94 18 99/64 (76) 100 01/17/18 04:48 Nasal Cannula 3.00 01/17/18 03:50 14 01/17/18 00:00 98.0 80 17 125/80 (95) 100 01/16/18 21:59 14 01/16/18 20:00 97.1 88 18 127/85 (99) 100 01/16/18 18:45 98.0 88 16 125/87 (100) 100 Nasal Cannula 3 01/16/18 18:15 87 16 126/87 (100) 100 Nasal Cannula 3 01/16/18 17:45 86 15 122/80 (94) 100 Nasal Cannula 3 01/16/18 17:30 90 16 122/85 (97) 100 Nasal Cannula 3 01/16/18 17:15 95 16 127/82 (97) 99 Nasal Cannula 3 01/16/18 17:00 87 17 121/89 (100) 99 Nasal Cannula 3 01/16/18 16:45 90 15 121/89 (100) 97 Nasal Cannula 3 01/16/18 16:39 97.6 107 15 117/83 (94) 94 Nasal Cannula 3 Physical Exam GENERAL: This is a well-nourished, well-developed patient, in no apparent distress. SKIN: No rashes, ecchymoses or lesions. Cool and dry. HEAD: Atraumatic. Normocephalic. No temporal or scalp tenderness. EYES: Pupils equal round and reactive. Extraocular motions intact. No scleral icterus. No injection or drainage. ENT: Nose without bleeding, purulent drainage or septal hematoma. Throat without erythema, tonsillar hypertrophy or exudate. Uvula midline. Airway patent. NECK: Trachea midline. No JVD or lymphadenopathy. Supple, nontender, no meningeal signs. CARDIOVASCULAR: Regular rate and rhythm without murmurs, gallops, or rubs. RESPIRATORY: Clear to auscultation. Breath sounds equal bilaterally. No wheezes , rales, or rhonchi. GASTROINTESTINAL: Abdomen soft, non-tender, nondistended. No hepato-splenomegaly , or palpable masses. No guarding. MUSCULOSKELETAL: Extremities without clubbing, cyanosis, or edema. No joint tenderness, effusion, or edema noted. No calf tenderness. Negative Homans sign bilaterally. NEUROLOGICAL: Awake and alert. Cranial nerves II through XII intact. Motor and sensory grossly within normal limits. Five out of 5 muscle strength in all muscle groups. Normal speech. Laboratory Laboratory Tests Test 01/16/18 17:40 01/17/18 06:27 White Blood Count 15.7 8.1 Red Blood Count 3.56 2.92 Hemoglobin 10.9 9.1 Hematocrit 32.7 26.8 Mean Corpuscular Volume 91.9 91.8 Mean Corpuscular Hemoglobin 30.6 31.2 Mean Corpuscular Hemoglobin Concent 33.3 34.0 Red Cell Distribution Width 14.0 14.2 Platelet Count 262 187 Mean Platelet Volume 7.5 8.0 Blood Urea Nitrogen 15 15 Creatinine 1.28 1.25 Random Glucose 163 96 Calcium Level 8.5 7.4 Sodium Level 140 140 Potassium Level 4.1 4.2 Chloride Level 105 105 Carbon Dioxide Level 24.7 27.7 Anion Gap 10 7 Estimat Glomerular Filtration Rate 56 57 Neutrophils (%) (Auto) 77.2 Lymphocytes (%) (Auto) 12.7 Monocytes (%) (Auto) 8.6 Eosinophils (%) (Auto) 1.4 Basophils (%) (Auto) 0.1 Neutrophils # (Auto) 6.2 Lymphocytes # (Auto) 1.0 Monocytes # (Auto) 0.7 Eosinophils # (Auto) 0.1 Basophils # (Auto) 0.0 CBC Comment DIFF FINAL Differential Comment Total Protein 5.3 Protein Corrected Calcium 8.4 Result Diagram: 01/17/1827 01/17/18 06 Imaging Last Impressions Lumbar Spine X-Ray 01/16/18 0000 Signed Impressions: Service Date/Time: Tuesday, January 16, 2018 10:02 - CONCLUSION: Intraoperative images. Jaime Carrasquillo MD Assessment and Plan Problem List: (1) Status post lumbar laminectomy ICD Code: Z98.890 - Other specified postprocedural states Plan: Management as per orthopedic surgery. cont current pain regimen PT, TLSO when out of bed cont SCDs and TEDs for dvt prophylaxis dc hyde once ambulatory IS every hour (2) CAD (coronary artery disease) ICD Code: I25.10 - Atherosclerotic heart disease of [place] coronary artery without angina pectoris Status: Chronic Plan: Seems to be stable. Patient is chest pain-free. Continue Brilinta as per neurosurgeon, statin, Coreg, losartan. Hold aspirin. (3) Glaucoma ICD Code: H40.9 - Unspecified glaucoma Status: Chronic Plan: Continue latanoprost. (4) Hypothyroidism ICD Code: E03.9 - Hypothyroidism, unspecified Plan: Continue levothyroxine. Check TSH and free T4. (5) Hyperglycemia ICD Code: R73.9 - Hyperglycemia, unspecified Status: Acute Plan: Blood sugars on 01/16/18 163 on BMP. Blood sugars much improved on 01/17. Suspect stress-induced hyperglycemia. Will check hemoglobin A1c. (6) Hypocalcemia ICD Code: E83.51 - Hypocalcemia Status: Acute Plan: Replace with IV calcium chloride and continue to monitor. Assessment and Plan DVT prophylaxis: SCDs, patient on Brilinta. Code Status Full code Discussed Condition With Patient Problem Qualifiers (1) Glaucoma: Qualified Codes: H40.9 - Unspecified glaucoma Jus Hamm MD Jan 17, 2018 15:43
[2018-01-17] MEDS: AMITRIPTYLINE HCL 10 MG TAB PO SCH (21:03)
[2018-01-17] MEDS: LATANOPROST 0.005% OPHT SOLN 2.5 ML BTL EACH EYE SCH (21:09)
[2018-01-18] VITALS (8 sets, daily range): BP systolic 85–136; BP diastolic 54–71; PULSE 89–116; RESP 16–18; TEMP 97.8–98.9; O2SAT 93–98
[2018-01-18] MEDS: ACETAMINOPHEN/HYDROcodone 325 MG/10 MG TAB PO PRN ×3 (02:25→13:48)
[2018-01-18] MEDS: LEVOTHYROXINE SODIUM 25 MCG TAB PO SCH (06:22)
[2018-01-18] MEDS: LEVOTHYROXINE SODIUM 112 MCG TAB PO SCH (06:22)
[2018-01-18] MEDS: PCA - TOTAL MG MORPHINE DELIVERED PER SHIFT SCH ×3 (06:28→21:02)
[2018-01-18] MEDS: SODIUM CHLOR 0.9% 1000 ML INJ 1,000 ML IV SCH (06:28)
[2018-01-18] MEDS: CALCIUM/VITAMIN D 250 MG/125 U TAB PO SCH (08:27)
[2018-01-18] MEDS: ATORVASTATIN 20 MG TAB PO SCH (08:28)
[2018-01-18] MEDS: CARVEDILOL 3.125 MG TAB PO SCH ×2 (08:28→20:55)
[2018-01-18] MEDS: MULTIVITAMIN TAB PO SCH (08:28)
[2018-01-18] MEDS: CYCLOBENZAPRINE HCL 10 MG TAB PO SCH ×3 (08:28→18:06)
[2018-01-18] MEDS: LOSARTAN 25 MG TAB PO SCH (08:28)
[2018-01-18] MEDS: TICAGRELOR 90 MG TAB PO SCH ×2 (08:29→20:55)
[2018-01-18] MEDS: CETIRIZINE HCL 10 MG TAB PO SCH (08:29)
[2018-01-18] MEDS: DOCUSATE SODIUM 100 MG CAP PO SCH (08:29)
[2018-01-18] MEDS: PANTOPRAZOLE SOD 40 MG DELAYED RELEASE TAB PO SCH (08:32)
[2018-01-18] MEDS: MORPHINE SULFATE 30 MG/30 ML PCA IV SCH (09:08)
--- NOTE | 2018-01-18 09:56 | HHI.NSPN ---
(Charlee Esteves) Note Status Status: Progress Note (Charlee Esteves) Interval History Interval History Mr. Monique is s/p L1-L2, L2-L3, L3-L4 laminectomy, interbody arthrodhesis using PEEK cage and autologous bone graft, L3-4, L4-L5 instrumental fixation using transpedicular screws and rods, L1-L2, L2-L3, L3-L4 posterolateral fusion using autologous bone graft and demineralized bone matrix, microsurgical dissection on Jan 16, 2018 for degenerative spondylolisthesis 01/17: doing well, surgical pain controlled on CHEMISTRY SPECIALIST, awaiting custom brace but requesting to get out of bed now 01/18: sitting up in chair with custom brace, moderate surgical pain. (Charlee Esteves) Labs, Micro, & Vital Signs Results Date Time Temp Pulse Resp B/P (MAP) Pulse Ox O2 Delivery O2 Flow Rate FiO2 01/18/18 09:08 16 01/18/18 08:09 98.6 93 18 100/68 (79) 96 01/18/18 04:00 98.2 93 18 92/56 (68) 97 01/18/18 00:11 97 Nasal Cannula 3.00 01/18/18 00:00 98.3 89 18 96/58 (71) 93 01/17/18 23:25 16 01/17/18 21:11 16 01/17/18 20:51 16 01/17/18 20:00 98.1 105 18 110/62 (78) 92 01/17/18 16:00 98.2 107 18 111/73 (86) 94 01/17/18 14:00 16 01/17/18 12:00 98.3 84 18 124/70 (88) 98 01/17/18 11:51 19 Constitutional Vital Signs Date Time Temp Pulse Resp B/P (MAP) Pulse Ox O2 Delivery O2 Flow Rate FiO2 01/18/18 09:08 16 01/18/18 08:09 98.6 93 18 100/68 (79) 96 01/18/18 04:00 98.2 93 18 92/56 (68) 97 01/18/18 00:11 97 Nasal Cannula 3.00 01/18/18 00:00 98.3 89 18 96/58 (71) 93 01/17/18 23:25 16 01/17/18 21:11 16 01/17/18 20:51 16 01/17/18 20:00 98.1 105 18 110/62 (78) 92 01/17/18 16:00 98.2 107 18 111/73 (86) 94 01/17/18 14:00 16 01/17/18 12:00 98.3 84 18 124/70 (88) 98 01/17/18 11:51 19 (Charlee Esteves) Physical Exam Mr. Monique is alert, awake and oriented. Speech is fluent. Sitting up in chair with custom TLSO brace. Cranial nerve: pupil equal. Facial motor are normal and symmetrical. Gross hearing appears intact. Motor: moving all four extremities well Heart: regular rate Resp: clear Skin: no cyanosis, warm and dry CATY drain with moderate serosanguineous drainage 180cc output overnight (Charlee Esteves) Medications Current Medications Current Medications Medications (Trade) Dose Ordered Sig/Edmund Route PRN Reason Start Time Stop Time Status Last Admin Dose Admin Metoprolol Tartrate (Lopressor) 25 mg HPLC CHEMIST PRN PO SEE LABEL COMMENTS 01/16/18 06:30 01/19/18 06:29 Sodium Chloride 1,000 ml @ 0 mls/hr Q24H IV 01/16/18 06:30 Potassium Chloride/Sodium Chloride 1,000 ml @ 100 mls/hr Q10H IV 01/16/18 19:00 01/17/18 23:58 Acetaminophen (Tylenol) 650 mg Q4H PRN PO TEMPERATURE > 101.5 F 01/16/18 17:15 Albuterol Sulfate (Albuterol Neb) 2.5 mg Q4HR NEB PRN INH WHEEZING 01/16/18 17:15 Amitriptyline HCl (Elavil) 10 mg HS PO 01/16/18 21:00 01/17/18 21:03 Carvedilol (Coreg) 3.125 mg BID PO 01/16/18 21:00 01/18/18 08:28 Cyclobenzaprine HCl (Flexeril) 10 mg TID PO 01/16/18 18:00 01/18/18 08:28 Docusate Sodium (Colace) 100 mg DAILY PO 01/17/18 09:00 01/18/18 08:29 Latanoprost (Xalatan 0.005% Opth Soln) 1 drop HS EACH EYE 01/16/18 21:00 01/17/18 21:09 Losartan Potassium (Cozaar) 25 mg DAILY PO 01/17/18 09:00 01/18/18 08:28 Ticagrelor (Brilinta) 90 mg BID PO 01/16/18 21:00 01/18/18 08:29 Pantoprazole Sodium (Protonix) 40 mg DAILY PO 01/17/18 09:00 Cetirizine HCl (ZyrTEC) 10 mg DAILY PO 01/17/18 09:00 01/18/18 08:29 Levothyroxine Sodium (Synthroid) 112 mcg DAILY@0600 PO 01/17/18 06:00 01/18/18 06:22 Multivitamins (Theragran) 1 tab DAILY PO 01/17/18 09:00 01/18/18 08:28 Atorvastatin Calcium (Lipitor) 20 mg DAILY PO 01/17/18 09:00 01/18/18 08:28 Morphine Sulfate (Morphine 1 Mg/ ml CHEMISTRY SPECIALIST) 30 mg UNSCH IV 01/16/18 19:00 01/18/18 09:08 CHEMISTRY SPECIALIST Dosage Infused (Pha) 1 Q8HR .XX 01/16/18 22:00 01/18/18 06:28 Naloxone HCl (Narcan Inj) 0.4 mg UNSCH PRN IV PUSH RESPIRATORY RATE LESS THAN 10 01/16/18 19:00 Levothyroxine Sodium (Synthroid) 25 mcg DAILY@0600 PO 01/17/18 06:00 01/18/18 06:22 Simethicone (Phazyme Chew) 187.5 mg QID PRN PO GAS RETENTION 01/16/18 20:00 Acetaminophen/ Hydrocodone Bitart ([place] 10-325 Mg) 1 tab Q4H PRN PO PAIN SCALE 1 TO 5 01/17/18 13:45 Acetaminophen/ Hydrocodone Bitart ([place] 10-325 Mg) 2 tab Q4H PRN PO PAIN SCALE 6 TO 10 01/17/18 13:45 01/18/18 09:29 Morphine Sulfate (Morphine Inj) 2 mg Q2H PRN IV PUSH breakthrough pain 01/17/18 13:45 Calcium/Vitamin D (Oscal-D 250-125) 250 mg DAILY PO 01/19/18 09:00 (Charlee Esteves) Medical Decision Making MDM Remarks 67 y/o male s/p L1-L2, L2-L3, L3-L4 laminectomy, interbody arthrodhesis using PEEK cage and autologous bone graft, L3-4, L4-L5 instrumental fixation using transpedicular screws and rods, L1-L2, L2-L3, L3-L4 posterolateral fusion using autologous bone graft and demineralized bone matrix, microsurgical dissection 01/16/18 (Charlee Esteves) Plan Plan Remarks cont current pain regimen, supportive care pain control, cont PT, TLSO when out of bed cont SCDs and TEDs for dvt prophylaxis dc hyde cont IS every hour cont CATY today, dc tomorrow (Charlee Esteves) Attending Statement The exam, history, and the medical decision-making described in the above note were completed with the assistance of the mid-level provider. I reviewed and agree with the findings presented. I attest that I had a [id number] encounter with the patient on the same day, and personally performed and documented my assessment and findings in the medical record. (Hamilton Jones MD) Charlee Esteves Jan 18, 2018 09:56 Hamilton Jones MD Jan 19, 2018 20:38
[2018-01-18] MEDS: NS + KCL 20 MEQ INJ 1,000 ML IV SCH ×3 (11:00→20:56)
[2018-01-18 11:32] LABS: HEMATOCRIT 27.4 % (39.0-51.0); HEMOGLOBIN 9.3 GM/DL (13.0-17.0); MEAN CELL VOLUME 91.3 FL (80.0-100.0); MEAN CORPUSCULAR HEMOGLOBIN 31.1 PG (27.0-34.0); PLATELET COUNT 190 TH/MM3 (150-450); RED CELL DISTRIBUTION WIDTH 14.1 % (11.6-17.2)
[2018-01-18 11:49] LABS: BICARBONATE 28.4 MEQ/L (21.0-32.0); CALCIUM 8.6 MG/DL (8.5-10.1); CREATININE 1.1 MG/DL (0.60-1.30)
--- NOTE | 2018-01-18 14:17 | HHI.PR ---
Subjective Remarks The patient is sitting in the chair. Pain is controlled. Denies fevers or chills. Denies chest pain or shortness of breath. Objective Vitals Vital Signs Date Time Temp Pulse Resp B/P (MAP) Pulse Ox O2 Delivery O2 Flow Rate FiO2 01/18/18 13:50 18 01/18/18 12:13 97.8 110 18 106/71 (83) 97 01/18/18 09:58 Nasal Cannula 3.00 01/18/18 09:08 16 01/18/18 08:09 98.6 93 18 100/68 (79) 96 01/18/18 04:00 98.2 93 18 92/56 (68) 97 01/18/18 00:11 97 Nasal Cannula 3.00 01/18/18 00:00 98.3 89 18 96/58 (71) 93 01/17/18 23:25 16 01/17/18 21:11 16 01/17/18 20:51 16 01/17/18 20:00 98.1 105 18 110/62 (78) 92 01/17/18 16:00 98.2 107 18 111/73 (86) 94 I/O 01/17/18 01/17/18 01/17/18 01/18/18 01/18/18 01/18/18 07:00 15:00 23:00 07:00 15:00 23:00 Intake Total 950 ml 110 ml 50 ml 1100 ml Output Total 900 ml 90 ml 90 ml 2650 ml 1150 ml Balance 50 ml 20 ml -40 ml -1550 ml -1150 ml Intake Oral 950 ml IV Total 110 ml 50 ml 1100 ml Output Urine Total 900 ml 2600 ml 1150 ml Drainage Total 90 ml 90 ml 50 ml # Bowel Movements 0 Result Diagram: 01/18/18 1045 01/18/18 1045 Imaging Last Impressions Lumbar Spine X-Ray 01/16/18 0000 Signed Impressions: Service Date/Time: Tuesday, January 16, 2018 10:02 - CONCLUSION: Intraoperative images. Jaime Carrasquillo MD Objective Remarks GENERAL: This is a well-nourished, well-developed patient, in no apparent distress. Sitting in chair. SKIN: No rashes, ecchymoses or lesions. Cool and dry. HEAD: Atraumatic. Normocephalic. No temporal or scalp tenderness. EYES: Pupils equal round and reactive. Extraocular motions intact. No scleral icterus. No injection or drainage. ENT: Nose without bleeding, purulent drainage or septal hematoma. Throat without erythema, tonsillar hypertrophy or exudate. Uvula midline. Airway patent. NECK: Trachea midline. No JVD or lymphadenopathy. Supple, nontender, no meningeal signs. CARDIOVASCULAR: Regular rate and rhythm without murmurs, gallops, or rubs. RESPIRATORY: Clear to auscultation. Breath sounds equal bilaterally. No wheezes , rales, or rhonchi. GASTROINTESTINAL: Abdomen soft, non-tender, nondistended. No hepato-splenomegaly , or palpable masses. No guarding. MUSCULOSKELETAL: Extremities without clubbing, cyanosis, or edema. No joint tenderness, effusion, or edema noted. No calf tenderness. Negative Homans sign bilaterally. Wearing TLSO brace. NEUROLOGICAL: Awake and alert. Cranial nerves II through XII intact. Motor and sensory grossly within normal limits. Five out of 5 muscle strength in all muscle groups. Normal speech. Procedures L1-L2, L2-L3, L3-L4 laminectomy, interbody arthrodhesis using PEEK cage and autologous bone graft, L3-4, L4-L5 instrumental fixation using transpedicular screws and rods, L1-L2, L2-L3, L3-L4 posterolateral fusion using autologous bone graft and demineralized bone matrix. Microsurgical dissection Medications and IVs Current Medications Medications (Trade) Dose Ordered Sig/Edmund Route Start Time Stop Time Status Last Admin (Lopressor) 25 mg SUPERVISOR FRUIT GRADING PRN PO 01/16/18 06:30 01/19/18 06:29 Sodium Chloride 1,000 ml @ 0 mls/hr Q24H IV 01/16/18 06:30 Potassium Chloride/Sodium Chloride 1,000 ml @ 100 mls/hr Q10H IV 01/16/18 19:00 01/17/18 23:58 (Tylenol) 650 mg Q4H PRN PO 01/16/18 17:15 (Albuterol Neb) 2.5 mg Q4HR NEB PRN INH 01/16/18 17:15 (Elavil) 10 mg HS PO 01/16/18 21:00 01/17/18 21:03 (Coreg) 3.125 mg BID PO 01/16/18 21:00 01/18/18 08:28 (Flexeril) 10 mg TID PO 01/16/18 18:00 01/18/18 13:48 (Colace) 100 mg DAILY PO 01/17/18 09:00 01/18/18 08:29 (Xalatan 0.005% Opth Soln) 1 drop HS EACH EYE 01/16/18 21:00 01/17/18 21:09 (Cozaar) 25 mg DAILY PO 01/17/18 09:00 01/18/18 08:28 (Brilinta) 90 mg BID PO 01/16/18 21:00 01/18/18 08:29 (Protonix) 40 mg DAILY PO 01/17/18 09:00 (ZyrTEC) 10 mg DAILY PO 01/17/18 09:00 01/18/18 08:29 (Synthroid) 112 mcg DAILY@0600 PO 01/17/18 06:00 01/18/18 06:22 (Theragran) 1 tab DAILY PO 01/17/18 09:00 01/18/18 08:28 (Lipitor) 20 mg DAILY PO 01/17/18 09:00 01/18/18 08:28 (Morphine 1 Mg/ ml EXTRUSION OPERATOR) 30 mg UNSCH IV 01/16/18 19:00 01/18/18 09:08 EXTRUSION OPERATOR Dosage Infused (Pha) 1 Q8HR .XX 01/16/18 22:00 01/18/18 13:50 (Narcan Inj) 0.4 mg UNSCH PRN IV PUSH 01/16/18 19:00 (Synthroid) 25 mcg DAILY@0600 PO 01/17/18 06:00 01/18/18 06:22 (Phazyme Chew) 187.5 mg QID PRN PO 01/16/18 20:00 ([place] 10-325 Mg) 1 tab Q4H PRN PO 01/17/18 13:45 ([place] 10-325 Mg) 2 tab Q4H PRN PO 01/17/18 13:45 01/18/18 13:48 (Morphine Inj) 2 mg Q2H PRN IV PUSH 01/17/18 13:45 (Oscal-D 250-125) 250 mg DAILY PO 01/19/18 09:00 A/P Problem List: (1) Status post lumbar laminectomy ICD Code: Z98.890 - Other specified postprocedural states Plan: Management as per orthopedic surgery. cont current pain regimen PT, TLSO when out of bed cont SCDs and TEDs for dvt prophylaxis dc hyde once ambulatory IS every hour (2) CAD (coronary artery disease) ICD Code: I25.10 - Atherosclerotic heart disease of [place] coronary artery without angina pectoris Status: Chronic Plan: Seems to be stable. Patient is chest pain-free. Continue Brilinta as per neurosurgeon, statin, Coreg, losartan. Hold aspirin. (3) Glaucoma ICD Code: H40.9 - Unspecified glaucoma Status: Chronic Plan: Continue latanoprost. Stable. (4) Hypothyroidism ICD Code: E03.9 - Hypothyroidism, unspecified Plan: Continue levothyroxine. Check TSH and free T4. (5) Hyperglycemia ICD Code: R73.9 - Hyperglycemia, unspecified Status: Acute Plan: Blood sugars on 01/16/18 163 on BMP. Blood sugars much improved on 01/17. Suspect stress-induced hyperglycemia. Will check hemoglobin A1c. (6) Hypocalcemia ICD Code: E83.51 - Hypocalcemia Status: Acute Plan: Status post replacement with IV calcium chloride. Come to levels within normal range today. Continue to monitor calcium levels. Assessment and Plan DVT prophylaxis: SCDs, the patient is on Brilinta. Discharge Planning As per primary team. Problem Qualifiers (1) Glaucoma: Qualified Codes: H40.9 - Unspecified glaucoma Jus Hamm MD Jan 18, 2018 14:17
[2018-01-18] MEDS: AMITRIPTYLINE HCL 10 MG TAB PO SCH (20:55)
[2018-01-18] MEDS: LATANOPROST 0.005% OPHT SOLN 2.5 ML BTL EACH EYE SCH (20:56)
[2018-01-19] VITALS (7 sets, daily range): BP systolic 109–131; BP diastolic 65–84; PULSE 96–121; RESP 17–18; TEMP 97.8–99.4; O2SAT 94–100
[2018-01-19] MEDS: LEVOTHYROXINE SODIUM 25 MCG TAB PO SCH (05:37)
[2018-01-19] MEDS: LEVOTHYROXINE SODIUM 112 MCG TAB PO SCH (05:37)
[2018-01-19] MEDS: PCA - TOTAL MG MORPHINE DELIVERED PER SHIFT SCH (05:41)
[2018-01-19] MEDS: NS + KCL 20 MEQ INJ 1,000 ML IV SCH ×2 (07:00→16:58)
[2018-01-19 07:57] LABS: BICARBONATE 28.6 MEQ/L (21.0-32.0); CALCIUM 8.3 MG/DL (8.5-10.1); CREATININE 1.06 MG/DL (0.60-1.30); MAGNESIUM 1.8 MG/DL (1.5-2.5)
[2018-01-19 07:59] LABS: HEMATOCRIT 22.3 % (39.0-51.0); HEMOGLOBIN 7.7 GM/DL (13.0-17.0); MEAN CELL VOLUME 90.9 FL (80.0-100.0); MEAN CORPUSCULAR HEMOGLOBIN 31.5 PG (27.0-34.0); MEAN CORPUSCULAR HGB CONC 34.6 % (32.0-36.0); MEAN PLATELET VOLUME 7.9 FL (7.0-11.0); PLATELET COUNT 144 TH/MM3 (150-450); RED BLOOD COUNT 2.46 MIL/MM3 (4.50-5.90); RED CELL DISTRIBUTION WIDTH 13.9 % (11.6-17.2); WHITE BLOOD COUNT 7.9 TH/MM3 (4.0-11.0)
[2018-01-19] MEDS: DOCUSATE SODIUM 100 MG CAP PO SCH (08:54)
[2018-01-19] MEDS: MULTIVITAMIN TAB PO SCH (08:54)
[2018-01-19] MEDS: CARVEDILOL 3.125 MG TAB PO SCH ×2 (08:54→20:53)
[2018-01-19] MEDS: CYCLOBENZAPRINE HCL 10 MG TAB PO SCH ×3 (08:54→16:58)
[2018-01-19] MEDS: CETIRIZINE HCL 10 MG TAB PO SCH (08:54)
[2018-01-19] MEDS: ATORVASTATIN 20 MG TAB PO SCH (08:54)
[2018-01-19] MEDS: LOSARTAN 25 MG TAB PO SCH (08:54)
[2018-01-19] MEDS: CALCIUM/VITAMIN D 250 MG/125 U TAB PO SCH (08:54)
[2018-01-19] MEDS: TICAGRELOR 90 MG TAB PO SCH ×2 (08:54→20:53)
[2018-01-19] MEDS: PANTOPRAZOLE SOD 40 MG DELAYED RELEASE TAB PO SCH (08:55)
[2018-01-19] MEDS: ACETAMINOPHEN/HYDROcodone 325 MG/10 MG TAB PO PRN ×3 (08:55→16:58)
--- NOTE | 2018-01-19 10:08 | HHI.PR ---
Subjective Remarks This is a 67 yo male with pmh of CAD, hypothyroidism, previous lumbar laminectomy who presents to [facility] [place] elective lumbar spine surgery. The patient states was having severe lumbar spine and observable deformity at the lumbar spine which progressively got worst. The patient underwent lumbar spine fusion. Complains of back pain worst with movement. Denies cp/sob, fevers, chills. 2-8 The patient is sitting in the chair. Pain is controlled. Denies fevers or chills. Denies chest pain or shortness of breath. 2-9 COMPLAINS OF PAIN STILL ON PATROL SERGEANT SHERIFF'S OFFICE COMPLAINS OF CONSTIPATIONS- POOR ORAL INTAKE- MAG CITRATE FOR THIS TOO NEEDS PT AND OT DW RN AND PT AND FAMILY AND CM Objective Vitals Vital Signs Date Time Temp Pulse Resp B/P (MAP) Pulse Ox O2 Delivery O2 Flow Rate FiO2 01/19/18 08:05 99.4 104 18 131/77 (95) 98 01/19/18 05:41 16 01/19/18 04:36 98.5 121 17 121/84 (96) 97 01/19/18 00:37 99.0 112 17 111/79 (90) 98 01/18/18 21:02 17 01/18/18 20:31 98.9 107 17 136/70 (92) 98 01/18/18 17:18 105/63 (77) 01/18/18 16:54 98.7 116 16 85/54 (64) 96 01/18/18 13:50 18 01/18/18 12:13 97.8 110 18 106/71 (83) 97 I/O 01/18/18 01/18/18 01/18/18 01/19/18 01/19/18 01/19/18 07:00 15:00 23:00 07:00 15:00 23:00 Intake Total 1100 ml 480 ml Output Total 2650 ml 1350 ml 230 ml 1720 ml Balance -1550 ml -1350 ml -230 ml -1240 ml Intake Oral 480 ml IV Total 1100 ml Output Urine Total 2600 ml 1350 ml 200 ml 1700 ml Drainage Total 50 ml 30 ml 20 ml # Voids 1 Result Diagram: 01/19/18 0620 01/19/18 0620 Other Results Laboratory Tests Test 01/16/18 13:35 01/16/18 14:27 3/6/18 17:40 01/17/18 06:27 Blood Gas Puncture Site DRAWN IN OR Blood Gas Patient Temperature 98.6 Blood Gas HCO3 25 mmol/L Blood Gas Base Excess 1.2 mmol/L Blood Gas Oxygen Saturation 97 % Arterial Blood pH 7.46 Arterial Blood Partial Pressure CO2 35 mmHg Arterial Blood Partial Pressure O2 232 mmHg Arterial Blood Oxygen Content 15.3 Vol % Arterial Blood Carboxyhemoglobin 1.3 % Arterial Blood Methemoglobin 1.3 % Blood Gas Hemoglobin 10.8 G/DL Oxygen Delivery Device OR Blood Gas Ventilator Setting OR Blood Gas Inspired Oxygen 55 % Hemoglobin 10.9 GM/DL 10.9 GM/DL 9.1 GM/DL Hematocrit 31.8 % 32.7 % 26.8 % White Blood Count 15.7 TH/MM3 8.1 TH/MM3 Red Blood Count 3.56 MIL/MM3 2.92 MIL/MM3 Mean Corpuscular Volume 91.9 FL 91.8 FL Mean Corpuscular Hemoglobin 30.6 PG 31.2 PG Mean Corpuscular Hemoglobin Concent 33.3 % 34.0 % Red Cell Distribution Width 14.0 % 14.2 % Platelet Count 262 TH/MM3 187 TH/MM3 Mean Platelet Volume 7.5 FL 8.0 FL Blood Urea Nitrogen 15 MG/DL 15 MG/DL Creatinine 1.28 MG/DL 1.25 MG/DL Random Glucose 163 MG/DL 96 MG/DL Calcium Level 8.5 MG/DL 7.4 MG/DL Sodium Level 140 MEQ/L 140 MEQ/L Potassium Level 4.1 MEQ/L 4.2 MEQ/L Chloride Level 105 MEQ/L 105 MEQ/L Carbon Dioxide Level 24.7 MEQ/L 27.7 MEQ/L Anion Gap 10 MEQ/L 7 MEQ/L Estimat Glomerular Filtration Rate 56 ML/MIN 57 ML/MIN Neutrophils (%) (Auto) 77.2 % Lymphocytes (%) (Auto) 12.7 % Monocytes (%) (Auto) 8.6 % Eosinophils (%) (Auto) 1.4 % Basophils (%) (Auto) 0.1 % Neutrophils # (Auto) 6.2 TH/MM3 Lymphocytes # (Auto) 1.0 TH/MM3 Monocytes # (Auto) 0.7 TH/MM3 Eosinophils # (Auto) 0.1 TH/MM3 Basophils # (Auto) 0.0 TH/MM3 CBC Comment DIFF FINAL Differential Comment Total Protein 5.3 GM/DL Protein Corrected Calcium 8.4 MG/DL Test 01/18/18 10:45 01/19/18 06:20 White Blood Count 10.0 TH/MM3 7.9 TH/MM3 Red Blood Count 3.00 MIL/MM3 2.46 MIL/MM3 Hemoglobin 9.3 GM/DL 7.7 GM/DL Hematocrit 27.4 % 22.3 % Mean Corpuscular Volume 91.3 FL 90.9 FL Mean Corpuscular Hemoglobin 31.1 PG 31.5 PG Mean Corpuscular Hemoglobin Concent 34.0 % 34.6 % Red Cell Distribution Width 14.1 % 13.9 % Platelet Count 190 TH/MM3 144 TH/MM3 Mean Platelet Volume 8.0 FL 7.9 FL Blood Urea Nitrogen 10 MG/DL 10 MG/DL Creatinine 1.10 MG/DL 1.06 MG/DL Random Glucose 123 MG/DL 105 MG/DL Calcium Level 8.6 MG/DL 8.3 MG/DL Sodium Level 136 MEQ/L 136 MEQ/L Potassium Level 4.1 MEQ/L 3.9 MEQ/L Chloride Level 101 MEQ/L 101 MEQ/L Carbon Dioxide Level 28.4 MEQ/L 28.6 MEQ/L Anion Gap 7 MEQ/L 6 MEQ/L Estimat Glomerular Filtration Rate 67 ML/MIN 69 ML/MIN Phosphorus Level 2.0 MG/DL Magnesium Level 1.8 MG/DL Imaging Last Impressions Lumbar Spine X-Ray 01/16/18 0000 Signed Impressions: Service Date/Time: Tuesday, January 16, 2018 10:02 - CONCLUSION: Intraoperative images. Jaime Carrasquillo MD Objective Remarks GENERAL: Awake alert oriented 3 talkative and cooperative SKIN: Warm and dry. HEAD: Atraumatic. Normocephalic. EYES: Pupils equal and round. No scleral icterus. No injection or drainage. Extraocular muscles intact ENT: No nasal bleeding or discharge. Mucous membranes pink and moist. Tongue is midline NECK: Trachea midline. No JVD. Supple CARDIOVASCULAR: Regular rate and rhythm. S1-S2 no S3 or S4 RESPIRATORY: No accessory muscle use. Clear to auscultation. Breath sounds equal bilaterally. GASTROINTESTINAL: Abdomen soft, non-tender, nondistended. Hepatic and splenic margins not palpable. MUSCULOSKELETAL: Extremities without clubbing, cyanosis, or edema. No obvious deformities. NEUROLOGICAL: Awake and alert. No obvious cranial nerve deficits. Motor grossly within normal limits. Five out of 5 muscle strength in the arms and legs. Normal speech. PSYCHIATRIC: Appropriate mood and affect; insight and judgment normal. Procedures L1-L2, L2-L3, L3-L4 laminectomy, interbody arthrodhesis using PEEK cage and autologous bone graft, L3-4, L4-L5 instrumental fixation using transpedicular screws and rods, L1-L2, L2-L3, L3-L4 posterolateral fusion using autologous bone graft and demineralized bone matrix. Microsurgical dissection Medications and IVs Current Medications Lactated Ringer's 1,000 ml @ 30 mls/hr Q24H PRN IV SEE LABEL COMMENTS Last administered on 01/16/18 07:10; Start 01/16/18 at 06:30; Stop 01/16/18 at 18:54; Status DC Sodium Chloride 500 ml @ 30 mls/hr [id number] PRN IV SEE LABEL COMMENTS; Start 01/16/18 at 06:30; Stop 01/16/18 at 18:54; Status DC Metoprolol Tartrate (Lopressor) 25 mg [employer]OL [employer] PRN PO SEE LABEL COMMENTS; Start 01/16/18 at 06:30; Stop 01/19/18 at 06:29; Status DC Povidone Iodine (Betadine 5% Antisepsis Kit) 1 applic S[employer]OL C[employer]IAN PRN EACH NARE SEE LABEL COMMENTS Last administered on 01/16/18 07:10; Start 01/16/18 at 06:30; Stop 01/16/18 at 18:54; Status DC Chlorhexidine Gluconate (Chlorhexidine 2% Cloth) 3 pack [employer] C[employer]IAN PRN TOPICAL SEE LABEL COMMENTS Last administered on 01/16/18at 07:10; Start 01/16/18 at 06:30; Stop 01/16/18 at 18:54; Status DC Vancomycin HCl 1000 mg/Sodium Chloride 250 ml @ 250 mls/hr S[employer] C[employer]ODIAN IV Last administered on 01/16/18at 11:07; Start 01/16/18 at 06:30; Stop 01/16/18 at 18:54; Status DC Sodium Chloride 1,000 ml @ 0 mls/hr Q24H IV ; Start 01/16/18 at 06:30 Acetaminophen 100 ml @ As Directed STK-MED ONCE IV ; Start 01/16/18 at 07:03; Stop 01/16/18 at 07:04; Status DC Propofol 150 ml @ As Directed STK-MED ONCE .ROUTE ; Start 01/16/18 at 07:03; Stop 01/16/18 at 07:04; Status DC Sufentanil Citrate (Sufenta Inj) 250 mcg STK-MED ONCE .ROUTE ; Start 01/16/18 at 07:04; Stop 01/16/18 at 07:05; Status DC Artificial Tears (Lacrilube Opht Oint) 3.5 applic STK-MED ONCE .ROUTE ; Start at 07:04; Stop 01/16/18 at 07:05; Status DC Hydromorphone HCl (Dilaudid Pf Inj) 2 mg STK-MED ONCE .ROUTE ; Start 01/16/18 at 07:05; Stop 01/16/18 at 07:06; Status DC Vancomycin HCl (Vancomycin Inj) 1,000 mg STK-MED ONCE .ROUTE Last administered on 01/16/18 11:00; Start 01/16/18 at 07:19; Stop 01/16/18 at 07:20; Status DC Thrombin (Thrombin Top Soln) 10,000 units STK-MED ONCE .ROUTE Last administered on 01/16/18 11:00; Start 01/16/18 at 07:19; Stop 01/16/18 at 07:20; Status DC Cefazolin Sodium/ Dextrose 100 ml @ As Directed STK-MED ONCE .ROUTE Last administered on 01/16/18 09:28; Start 01/16/18 at 07:19; Stop 01/16/18 at 07:20; Status DC Bupivacaine HCl/ Epinephrine Bitart (Sensorcaine-Epinephrine Pf 0.5% Inj) 30 ml STK-MED ONCE .ROUTE Last administered on 01/16/18 11:00; Start 01/16/18 at 07:20 ; Stop 01/16/18 at 07:21; Status DC Gelatin (Gelfoam 100 Top) 1 foam STK-MED ONCE .ROUTE Last administered on 11:00; Start 01/16/18 at 07:20; Stop 01/16/18 at 07:21; Status DC Gentamicin Sulfate (Gentamicin Inj) 240 mg STK-MED ONCE .ROUTE Last administered on 01/16/18 11:00; Start 01/16/18 at 07:20; Stop 01/16/18 at 07:21; Status DC Heparin Sodium (Porcine) (Heparin Inj) 30,000 units STK-MED ONCE .ROUTE Last administered on 01/16/18at 11:00; Start 01/16/18 at 07:20; Stop 01/16/18 at 07:21; Status DC Cefazolin Sodium (Ancef Inj) 2,000 mg ONCE ONCE IRRIGATION ; Start 01/16/18 at 14:22; Stop 01/16/18 at 15:37; Status DC Fentanyl Citrate (fentaNYL INJ) 200 mcg STK-MED ONCE .ROUTE ; Start 01/16/18 at 16:49; Stop 01/16/18 at 16:50; Status DC Morphine Sulfate (Morphine Inj) 8 mg STK-MED ONCE .ROUTE ; Start 01/16/18 at 16: 49; Stop 01/16/18 at 16:50; Status DC Midazolam HCl (Versed Inj) 2 mg STK-MED ONCE .ROUTE ; Start 01/16/18 at 16:49; Stop 01/16/18 at 16:50; Status DC Potassium Chloride/Sodium Chloride 1,000 ml @ 100 mls/hr Q10H IV Last administered on 01/18/18at 16:21; Start 01/16/18 at 19:00 Cefazolin Sodium/ Dextrose 50 ml @ 100 mls/hr Q8H IV Last administered on at 14:01; Start 01/16/18 at 21:00; Stop 01/17/18 at 13:29; Status DC Pantoprazole Sodium (Protonix Inj) 40 mg DAILY IVP ; Start 01/17/18 at 09:00; Stop 01/17/18 at 13:39; Status DC Morphine Sulfate (Morphine Inj) 2 mg Q2H PRN IV PUSH breakthrough pain; Start 01/16/18 at 17:15; Stop 01/17/18 at 13:40; Status DC Morphine Sulfate (Morphine Inj) 4 mg Q2H PRN IV PUSH PAIN SCALE 7 TO 10 Last administered on 01/17/18at 03:35; Start 01/16/18 at 17:15; Stop 01/17/18 at 13:39; Status DC Acetaminophen (Tylenol) 650 mg Q4H PRN PO TEMPERATURE > 101.5 F; Start 01/16/18 at 17:15 Albuterol Sulfate (Albuterol Neb) 2.5 mg Q4HR NEB PRN INH WHEEZING; Start at 17:15 Naloxone HCl (Narcan Inj) 0.4 mg UNSCH PRN IV PUSH RESPIRATORY RATE LESS THAN 10; Start 01/16/18 at 17:15; Stop 01/16/18 at 18:53; Status DC Diphenhydramine HCl (Benadryl Inj) 25 mg Q6H PRN IV PUSH ITCHING; Start at 17:15; Stop 01/16/18 at 18:53; Status DC Hydromorphone HCl (Dilaudid PATROL [employer]GE[employer] OFFICE Inj) 6 mg UNSCH IV ; Start 01/16/18 at 17:15; Stop 01/16/18 at 18:53; Status DC PATROL [employer] OFFICE Dosage Infused (Pha) 1 Q8HR .XX ; Start 01/16/18 at 17:15; Stop 01/16/18 at 18 :53; Status DC Amitriptyline HCl (Elavil) 10 mg HS PO Last administered on 01/18/18at 20:55; Start 01/16/18 at 21:00 Calcium/Vitamin D (Oscal-D 250-125) 1 mg DAILY PO Last administered on 08:27; Start 01/17/18 at 09:00; Stop 01/18/18 at 09:31; Status DC Carvedilol (Coreg) 3.125 mg BID PO Last administered on 01/19/18 08:54; Start 01/16/18 at 21:00 Cyclobenzaprine HCl (Flexeril) 10 mg TID PO Last administered on 01/19/18 08:54 ; Start 01/16/18 at 18:00 Docusate Sodium (Colace) 100 mg DAILY PO Last administered on 01/19/18 08:54; Start 01/17/18 at 09:00 Latanoprost (Xalatan 0.005% Opt Soln) 1 drop HS EACH EYE Last administered on 01/18/18 20:56; Start 01/16/18 at 21:00 Losartan Potassium (Cozaar) 25 mg DAILY PO Last administered on 01/19/18 08:54 ; Start 01/17/18 at 09:00 Ticagrelor (Brilinta) 90 mg BID PO Last administered on 01/19/18 08:54; Start 01/16/18 at 21:00 Pantoprazole Sodium (Protonix) 40 mg DAILY PO ; Start 01/17/18 at 09:00 Non-Formulary Medication 1 cap DAILY PO ; Start 01/17/18 at 09:00; Stop 01/17/18 at 09:00; Status DC Cetirizine HCl (ZyrTEC) 10 mg DAILY PO Last administered on 01/19/18 08:54; Start 01/17/18 at 09:00 Levothyroxine Sodium (Synthroid) 112 mcg DAILY@0600 PO Last administered on 01/19 05:37; Start 01/17/18 at 06:00 Multivitamins (Theragran) 1 tab DAILY PO Last administered on 01/19/18 08:54; Start 01/17/18 at 09:00 Atorvastatin Calcium (Lipitor) 20 mg DAILY PO Last administered on 01/19/18 08: 54; Start 01/17/18 at 09:00 Patient Own Medication PT OWN MED: (Simethicone 180 ... QID PRN PO GAS RETENTION; Start 01/16/18 at 20:00; Stop 01/16/18 at 20:00; Status DC Morphine Sulfate (Morphine 1 Mg/ ml PATROL [employer] OFFICE) 30 mg STK-MED ONCE .ROUTE ; Start at 17:40; Stop 01/16/18 at 17:41; Status DC Miscellaneous Information ALL NURSING DEPARTME... UNSCH PRN .XX SEE LABEL COMMENTS; Start 01/16/18 at 16:39; Stop 01/17/18 at 16:38; Status DC Morphine Sulfate (Morphine 1 Mg/ ml [employer] [employer] OFFICE) 30 mg UNSCH IV Last administered on 09:08; Start 01/16/18 at 19:00 PATROL [employer] OFFICE Dosage Infused (Pha) 1 Q8HR .XX Last administered on 01/19/18at 05:41; Start 01/16/18 at 22:00 Naloxone HCl (Narcan Inj) 0.4 mg UNSCH PRN IV PUSH RESPIRATORY RATE LESS THAN 10; Start 01/16/18 at 19:00 Levothyroxine Sodium (Synthroid) 25 mcg DAILY@0600 PO Last administered on at 05:37; Start 01/17/18 at 06:00 Simethicone (Phazyme Chew) 187.5 mg QID PRN PO GAS RETENTION; Start 01/16/18 at 20:00 Calcium Chloride 1 gm/Sodium Chloride 110 ml @ 110 mls/hr ONCE ONCE IV Last administered on 01/17/18at 10:06; Start 01/17/18 at 09:45; Stop 01/17/18 at 10:44; Status DC Acetaminophen/ Hydrocodone Bitart ([place] 10-325 Mg) 1 tab Q4H PRN PO PAIN SCALE 1 TO 5; Start 01/17/18 at 13:45 Acetaminophen/ Hydrocodone Bitart ([place] 10-325 Mg) 2 tab Q4H PRN PO PAIN SCALE 6 TO 10 Last administered on 01/19/18at 08:55; Start 01/17/18 at 13:45 Morphine Sulfate (Morphine Inj) 2 mg Q2H PRN IV PUSH breakthrough pain; Start 01/17/18 at 13:45 Calcium/Vitamin D (Oscal-D 250-125) 250 mg DAILY PO Last administered on at 08:54; Start 01/19/18 at 09:00 Lactated Ringer's 2,000 ml @ As Directed STK-MED ONCE IV ; Start 01/16/18 at 12: 00; Stop 01/18/18 at 13:11; Status DC Sodium Chloride 250 ml @ As Directed STK-MED ONCE IV ; Start 01/16/18 at 12:00; Stop 01/18/18 at 13:11; Status DC Sodium Chloride 500 ml @ As Directed STK-MED ONCE IV ; Start 01/16/18 at 12:00; Stop 01/18/18 at 13:11; Status DC Parenteral Electrolytes 1,000 ml @ As Directed STK-MED ONCE IV ; Start 01/16/18 at 12:00; Stop 01/18/18 at 13:11; Status DC Lidocaine HCl (Xylocaine-Mpf 1% Inj) 5 ml STK-MED ONCE OTHER ; Start 01/16/18 at 12:00; Stop 01/18/18 at 13:11; Status DC Rocuronium [place] (Zemuron Inj) 50 mg STK-MED ONCE IV PUSH ; Start 01/16/18 at 12:00; Stop 01/18/18 at 13:11; Status DC Phenylephrine HCl (Neosynephrine/ NS 1000 Mcg/10ml Syr) 1,000 mcg STK-MED ONCE IV ; Start 01/16/18 at 12:00; Stop 01/18/18 at 13:11; Status DC Phenylephrine HCl (Neosynephrine Inj) 20 mg STK-MED ONCE IV ; Start 01/16/18 at 12:00; Stop 01/18/18 at 13:11; Status DC Metoprolol Tartrate (Lopressor Inj) 5 mg STK-MED ONCE IV ; Start 01/16/18 at 12: 00; Stop 01/18/18 at 13:11; Status DC Esmolol HCl (Brevibloc Bolus Inj) 100 mg STK-MED ONCE IV ; Start 01/16/18 at 12: 00; Stop 01/18/18 at 13:11; Status DC Dexamethasone Sodium Phosphate (Decadron Inj) 8 mg STK-MED ONCE IV ; Start at 12:00; Stop 01/18/18 at 13:11; Status DC Ondansetron HCl (Zofran Inj) 4 mg STK-MED ONCE IV ; Start 01/16/18 at 12:00; Stop 01/18/18 at 13:11; Status DC Cefazolin Sodium (Ancef Inj) 1,000 mg STK-MED ONCE IV ; Start 01/16/18 at 12:00; Stop 01/18/18 at 13:11; Status DC Propofol (Diprivan 200 Mg/20 ml Inj) 400 mg STK-MED ONCE IV ; Start 01/16/18 at 12:00; Stop 01/18/18 at 13:11; Status DC A/P Problem List: (1) Status post lumbar laminectomy ICD Code: Z98.890 - Other specified postprocedural states Plan: Management as per NEURO surgery. cont current pain regimen PT, TLSO when out of bed cont SCDs and TEDs for dvt prophylaxis dc hyde once ambulatory IS every hour (2) CAD (coronary artery disease) ICD Code: I25.10 - Atherosclerotic heart disease of [place] coronary artery without angina pectoris Status: Chronic Plan: Seems to be stable. Patient is chest pain-free. Continue Brilinta as per neurosurgeon, statin, Coreg, losartan. Hold aspirin. (3) Glaucoma ICD Code: H40.9 - Unspecified glaucoma Status: Chronic Plan: Continue latanoprost. Stable. (4) Hypothyroidism ICD Code: E03.9 - Hypothyroidism, unspecified Plan: Continue levothyroxine. Check TSH and free T4. (5) Hyperglycemia ICD Code: R73.9 - Hyperglycemia, unspecified Status: Acute Plan: Blood sugars on 01/16/18 163 on BMP. Blood sugars much improved on 01/17. Suspect stress-induced hyperglycemia. Will check hemoglobin A1c. (6) Hypocalcemia ICD Code: E83.51 - Hypocalcemia Status: Acute Plan: Status post replacement with IV calcium chloride. levels within normal range today. Continue to monitor calcium levels. (7) Anemia ICD Code: D64.9 - Anemia, unspecified Plan: RECHECK CBC NOW SINCE FEW GRAMS DROP FROM YESTERDAY (8) Constipation, acute ICD Code: K59.00 - Constipation, unspecified Plan: MEDICATIONS FOR CONSTIPATION AND MAG CITRATE Assessment and Plan CONTINUE PT AND OT Discharge Planning PENDING NEUROSURGERY CLEARANCE HOPEFULLY HOME TOMORROW IF CLEARED BY NEUROSURGERY Problem Qualifiers (1) Glaucoma: Qualified Codes: H40.9 - Unspecified glaucoma Juni Rdo DO Jan 19, 2018 10:08
[2018-01-19] MEDS ORDERED: NALOXONE HCL 0.4 MG/ML AMP IV PUSH PRN (10:15)
[2018-01-19] MEDS ORDERED: BISACODYL 10 MG SUPP RECTAL PRN (10:15)
[2018-01-19] MEDS ORDERED: SENNOSIDES 8.6 MG TAB PO PRN (10:15)
[2018-01-19] MEDS ORDERED: MAGNESIUM HYDROXIDE SUSP 30 ML CUP PO PRN (10:15)
[2018-01-19] MEDS ORDERED: SODIUM CHLORIDE 0.9% FLUSH 10 ML FLUSH IV FLUSH PRN (10:15)
[2018-01-19] MEDS ORDERED: LACTULOSE SYRUP 20 GM/30 ML CUP PO PRN (10:15)
[2018-01-19] MEDS ORDERED: MAGNESIUM CITRATE SOLN 300 ML BTL PO ONE (11:00)
[2018-01-19] MEDS ORDERED: WALKER WHEELS/F1 MIS (11:24)
--- NOTE | 2018-01-19 12:23 | HHI.DCPOC ---
Discharge Care Plan Diagnosis: (1) S/P lumbar spinal fusion Goals to Promote Your Health * To prevent worsening of your condition and complications * To maintain your health at the optimal level Directions to Meet Your Goals Take your medications as prescribed Follow your dietary instruction Follow activity as directed Keep your appointments as scheduled Take your immunizations and boosters as scheduled If your symptoms worsen call your PCP, if no PCP go to Urgent Care Center or Emergency Room Smoking is Dangerous to Your Health. Avoid second hand smoke Call the 24-hour hour crisis hotline for domestic abuse at Charlee Esteves Jan 19, 2018 12:23
--- NOTE | 2018-01-19 12:24 | HHI.FF ---
Face to Face Verification Diagnosis: (1) S/P lumbar spinal fusion Physical Therapy Order: Improve ambulation Home Health Nursing Order: Medical education Signs/symptoms of disease process Medication education-adverse effect Wound care and dressing changes Nursing assessment with vital signs I have seen patient Rogelio Monique on 01/19/18. My clinical findings support the need for the requested home health care services because: Deconditioned w/ increased weakness I certify that my clinical findings support that this patient is homebound because: Post-op weakness Unsteady gait/balance Charlee Esteves Jan 19, 2018 12:24
[2018-01-19 13:07] LABS: AUTOMATED NEUTROPHIL # 7.2 TH/MM3 (1.8-7.7); BASOPHIL % 0.3 % (0.0-2.0); EOSINOPHIL # 0.2 TH/MM3 (0-0.4); EOSINOPHIL % 1.9 % (0.0-4.0); HEMATOCRIT 26.9 % (39.0-51.0); HEMOGLOBIN 9.2 GM/DL (13.0-17.0); LYMPH % 8.7 % (9.0-44.0); LYMPHOCYTE # 0.8 TH/MM3 (1.0-4.8); MEAN CELL VOLUME 92.1 FL (80.0-100.0); MEAN CORPUSCULAR HEMOGLOBIN 31.4 PG (27.0-34.0); MEAN CORPUSCULAR HGB CONC 34.1 % (32.0-36.0); MEAN PLATELET VOLUME 7.8 FL (7.0-11.0); MONO % 10.5 % (0.0-8.0); NEUT % 78.6 % (16.0-70.0); PLATELET COUNT 193 TH/MM3 (150-450); RED BLOOD COUNT 2.92 MIL/MM3 (4.50-5.90); RED CELL DISTRIBUTION WIDTH 13.9 % (11.6-17.2); WHITE BLOOD COUNT 9.2 TH/MM3 (4.0-11.0)
[2018-01-19 13:37] LABS: FREE T4 1.29 NG/DL (0.76-1.46)
--- NOTE | 2018-01-19 14:13 | HHI.NSPN ---
(Charlee Esteves) Note Status Status: Progress Note (Charlee Esteves) Interval History Interval History Mr. Monique is s/p L1-L2, L2-L3, L3-L4 laminectomy, interbody arthrodhesis using PEEK cage and autologous bone graft, L3-4, L4-L5 instrumental fixation using transpedicular screws and rods, L1-L2, L2-L3, L3-L4 posterolateral fusion using autologous bone graft and demineralized bone matrix, microsurgical dissection on Jan 16, 2018 for degenerative spondylolisthesis 01/17: doing well, surgical pain controlled on [employer], awaiting custom brace but requesting to get out of bed now 01/18: sitting up in chair with custom brace, moderate surgical pain. 01/19: pt c/o not walking enough, would like to increase his mobilization (Charlee Esteves) Labs, Micro, & Vital Signs Results Date Time Temp Pulse Resp B/P (MAP) Pulse Ox O2 Delivery O2 Flow Rate FiO2 01/19/18 12:44 Nasal Cannula 3.00 01/19/18 11:52 97.8 117 18 120/75 (90) 94 01/19/18 08:05 99.4 104 18 131/77 (95) 98 01/19/18 05:41 16 01/19/18 04:36 98.5 121 17 121/84 (96) 97 01/19/18 00:37 99.0 112 17 111/79 (90) 98 01/18/18 21:02 17 01/18/18 20:31 98.9 107 17 136/70 (92) 98 01/18/18 17:18 105/63 (77) 01/18/18 16:54 98.7 116 16 85/54 (64) 96 01/20/18 07:00 Intake Total 240 ml Balance 240 ml Constitutional Vital Signs Date Time Temp Pulse Resp B/P (MAP) Pulse Ox O2 Delivery O2 Flow Rate FiO2 01/19/18 12:44 Nasal Cannula 3.00 01/19/18 11:52 97.8 117 18 120/75 (90) 94 01/19/18 08:05 99.4 104 18 131/77 (95) 98 01/19/18 05:41 16 01/19/18 04:36 98.5 121 17 121/84 (96) 97 01/19/18 00:37 99.0 112 17 111/79 (90) 98 01/18/18 21:02 17 01/18/18 20:31 98.9 107 17 136/70 (92) 98 01/18/18 17:18 105/63 (77) 01/18/18 16:54 98.7 116 16 85/54 (64) 96 01/20/18 07:00 Intake Total 240 ml Balance 240 ml (Charlee Esteves) Physical Exam Mr. Monique is alert, awake. Speech is fluent. Cranial nerve: pupil equal. Facial motor are normal and symmetrical. Gross hearing appears intact. Motor: moving all four extremities well Heart: regular rate Resp: clear Skin: no cyanosis, warm and dry CATY drain with minimal serosanguineous, optifoam in place over incision, dry. (Charlee Esteves) Medications Current Medications Current Medications Medications (Trade) Dose Ordered Sig/Edmund Route PRN Reason Start Time Stop Time Status Last Admin Dose Admin Sodium Chloride 1,000 ml @ 0 mls/hr Q24H IV 01/16/18 06:30 Potassium Chloride/Sodium Chloride 1,000 ml @ 100 mls/hr Q10H IV 01/16/18 19:00 01/18/18 16:21 Acetaminophen (Tylenol) 650 mg Q4H PRN PO TEMPERATURE > 101.5 F 01/16/18 17:15 Albuterol Sulfate (Albuterol Neb) 2.5 mg Q4HR NEB PRN INH WHEEZING 01/16/18 17:15 Amitriptyline HCl (Elavil) 10 mg HS PO 01/16/18 21:00 01/18/18 20:55 Carvedilol (Coreg) 3.125 mg BID PO 01/16/18 21:00 01/19/18 08:54 Cyclobenzaprine HCl (Flexeril) 10 mg TID PO 01/16/18 18:00 01/19/18 12:45 Docusate Sodium (Colace) 100 mg DAILY PO 01/17/18 09:00 01/19/18 08:54 Latanoprost (Xalatan 0.005% Opth Soln) 1 drop HS EACH EYE 01/16/18 21:00 01/18/18 20:56 Losartan Potassium (Cozaar) 25 mg DAILY PO 01/17/18 09:00 01/19/18 08:54 Ticagrelor (Brilinta) 90 mg BID PO 01/16/18 21:00 01/19/18 08:54 Pantoprazole Sodium (Protonix) 40 mg DAILY PO 01/17/18 09:00 Cetirizine HCl (ZyrTEC) 10 mg DAILY PO 01/17/18 09:00 01/19/18 08:54 Levothyroxine Sodium (Synthroid) 112 mcg DAILY@0600 PO 01/17/18 06:00 01/19/18 05:37 Multivitamins (Theragran) 1 tab DAILY PO 01/17/18 09:00 01/19/18 08:54 Atorvastatin Calcium (Lipitor) 20 mg DAILY PO 01/17/18 09:00 01/19/18 08:54 Naloxone HCl (Narcan Inj) 0.4 mg UNSCH PRN IV PUSH RESPIRATORY RATE LESS THAN 10 01/16/18 19:00 Levothyroxine Sodium (Synthroid) 25 mcg DAILY@0600 PO 01/17/18 06:00 01/19/18 05:37 Simethicone (Phazyme Chew) 187.5 mg QID PRN PO GAS RETENTION 01/16/18 20:00 Acetaminophen/ Hydrocodone Bitart ([place] 10-325 Mg) 1 tab Q4H PRN PO PAIN SCALE 1 TO 5 01/17/18 13:45 Acetaminophen/ Hydrocodone Bitart ([place] 10-325 Mg) 2 tab Q4H PRN PO PAIN SCALE 6 TO 10 01/17/18 13:45 01/19/18 12:46 Morphine Sulfate (Morphine Inj) 2 mg Q2H PRN IV PUSH breakthrough pain 01/17/18 13:45 Calcium/Vitamin D (Oscal-D 250-125) 250 mg DAILY PO 01/19/18 09:00 01/19/18 08:54 Sodium Chloride (NS Flush) 2 ml UNSCH PRN IV FLUSH FLUSH AFTER USING IV ACCESS 01/19/18 10:15 Sodium Chloride (NS Flush) 2 ml BID IV FLUSH 3/9/18 21:00 Naloxone HCl (Narcan Inj) 0.4 mg UNSCH PRN IV PUSH SEE LABEL COMMENTS 01/19/18 10:15 Senna/Docusate Sodium (Deisy-Colace) 1 tab BID PO 01/19/18 21:00 Magnesium Hydroxide (Milk Of Magnesia Liq) 30 ml Q12H PRN PO Mild constipation 01/19/18 10:15 Bisacodyl (Dulcolax Supp) 10 mg DAILY PRN RECTAL SEVERE CONSITIPATION 01/19/18 10:15 Lactulose (Lactulose Liq) 30 ml DAILY PRN PO SEVERE CONSITIPATION 01/19/18 10:15 Sennosides (Senokot) 17.2 mg Q12H PO 01/19/18 22:00 (Charlee Esteves) Medical Decision Making MDM Remarks 67 y/o male s/p L1-L2, L2-L3, L3-L4 laminectomy, interbody arthrodhesis using PEEK cage and autologous bone graft, L3-4, L4-L5 instrumental fixation using transpedicular screws and rods, L1-L2, L2-L3, L3-L4 posterolateral fusion using autologous bone graft and demineralized bone matrix, microsurgical dissection 01/16/18 (Charlee Esteves) Plan Plan Remarks cont supportive care cont PT, TLSO when out of bed will increase mobilization today - nursing cont SCDs and TEDs for dvt prophylaxis cont IS every hour dc CATY drain appreciate medical assistance anticipate dc home tomorrow with [facility] (Charlee Esteves) Attending Statement The exam, history, and the medical decision-making described in the above note were completed with the assistance of the mid-level provider. I reviewed and agree with the findings presented. I attest that I had a [id number] encounter with the patient on the same day, and personally performed and documented my assessment and findings in the medical record. (Hamilton Jones MD) Charlee Esteves Jan 19, 2018 14:13 Hamilton Jones MD Jan 19, 2018 20:43
[2018-01-19 16:44] LABS: HEMOGLOBIN A1C 5.7 % (4.3-6.0)
[2018-01-19] MEDS: DOCUSATE SODIUM 50 MG/SENNA 8.6 MG TAB PO SCH (20:53)
[2018-01-19] MEDS: SENNOSIDES 8.6 MG TAB PO SCH (20:53)
[2018-01-19] MEDS: AMITRIPTYLINE HCL 10 MG TAB PO SCH (20:53)
[2018-01-19] MEDS: SODIUM CHLORIDE 0.9% FLUSH 10 ML FLUSH IV FLUSH SCH (20:54)
[2018-01-19] MEDS: LATANOPROST 0.005% OPHT SOLN 2.5 ML BTL EACH EYE SCH (20:56)
[2018-01-20] VITALS: BP 109/74; PULSE 104; RESP 18; TEMP 99.4; O2SAT 97
[2018-01-20] MEDS: ACETAMINOPHEN/HYDROcodone 325 MG/10 MG TAB PO PRN ×2 (02:32→09:02)
[2018-01-20] MEDS: NS + KCL 20 MEQ INJ 1,000 ML IV SCH (02:38)
[2018-01-20 05:15] VITALS: BP 100/61; PULSE 100; RESP 17; TEMP 98.2; O2SAT 97
[2018-01-20] MEDS: LEVOTHYROXINE SODIUM 25 MCG TAB PO SCH (05:59)
[2018-01-20] MEDS: LEVOTHYROXINE SODIUM 112 MCG TAB PO SCH (05:59)
[2018-01-20 07:59] LABS: AUTOMATED NEUTROPHIL # 5.6 TH/MM3 (1.8-7.7); BASOPHIL % 0.2 % (0.0-2.0); EOSINOPHIL # 0.2 TH/MM3 (0-0.4); EOSINOPHIL % 2.4 % (0.0-4.0); HEMOGLOBIN 7.4 GM/DL (13.0-17.0); LYMPH % 10.5 % (9.0-44.0); LYMPHOCYTE # 0.8 TH/MM3 (1.0-4.8); MEAN CELL VOLUME 91.4 FL (80.0-100.0); MEAN CORPUSCULAR HEMOGLOBIN 30.8 PG (27.0-34.0); MEAN CORPUSCULAR HGB CONC 33.7 % (32.0-36.0); MEAN PLATELET VOLUME 7.9 FL (7.0-11.0); MONO % 10.5 % (0.0-8.0); MONOCYTE # 0.8 TH/MM3 (0-0.9); NEUT % 76.4 % (16.0-70.0); PLATELET COUNT 175 TH/MM3 (150-450); RED BLOOD COUNT 2.41 MIL/MM3 (4.50-5.90); RED CELL DISTRIBUTION WIDTH 14.1 % (11.6-17.2); WHITE BLOOD COUNT 7.3 TH/MM3 (4.0-11.0)
[2018-01-20 08:27] LABS: ALBUMIN 2.4 GM/DL (3.4-5.0); ALT (GPT) 31 U/L (12-78); AST (GOT) 37 U/L (15-37); BICARBONATE 28.9 MEQ/L (21.0-32.0); BLOOD UREA NITROGEN 11 MG/DL (7-18); CALCIUM 8.6 MG/DL (8.5-10.1); CHLORIDE 100 MEQ/L (98-107); CREATININE 1.24 MG/DL (0.60-1.30); GLOMERULAR FILTRATION RATE 58 ML/MIN (>89); GLUCOSE,RANDOM 103 MG/DL (74-106); MAGNESIUM 2.2 MG/DL (1.5-2.5); SODIUM (NA) 136 MEQ/L (136-145)
[2018-01-20 08:29] LABS: ALKALINE PHOSPHATASE 115 U/L (45-117); TOTAL BILIRUBIN ADULT 0.5 MG/DL (0.2-1.0)
[2018-01-20] MEDS: CALCIUM/VITAMIN D 250 MG/125 U TAB PO SCH (08:49)
[2018-01-20] MEDS: SODIUM CHLORIDE 0.9% FLUSH 10 ML FLUSH IV FLUSH SCH (08:49)
[2018-01-20] MEDS: PANTOPRAZOLE SOD 40 MG DELAYED RELEASE TAB PO SCH (08:50)
[2018-01-20] MEDS: LOSARTAN 25 MG TAB PO SCH (08:50)
[2018-01-20] MEDS: DOCUSATE SODIUM 100 MG CAP PO SCH (08:51)
[2018-01-20] MEDS: MULTIVITAMIN TAB PO SCH (08:51)
[2018-01-20] MEDS: DOCUSATE SODIUM 50 MG/SENNA 8.6 MG TAB PO SCH (08:51)
[2018-01-20] MEDS: CETIRIZINE HCL 10 MG TAB PO SCH (08:53)
[2018-01-20] MEDS: CARVEDILOL 3.125 MG TAB PO SCH (08:54)
[2018-01-20] MEDS: CYCLOBENZAPRINE HCL 10 MG TAB PO SCH (08:55)
[2018-01-20] MEDS: ATORVASTATIN 20 MG TAB PO SCH (08:55)
[2018-01-20] MEDS: TICAGRELOR 90 MG TAB PO SCH (08:55)
[2018-01-20] MEDS: SENNOSIDES 8.6 MG TAB PO SCH (09:01)
[2018-01-20 10:01] VITALS: BP 99/57; PULSE 94; RESP 20; TEMP 98.6; O2SAT 96
--- NOTE | 2018-01-22 13:17 | HHI.DS ---
Discharge Summary Admission Date Jan 16, 2018 at 06:05 Discharge Date: Jan 20, 2018 Admitting Diagnosis s/p lumbar fusion (1) Status post lumbar laminectomy ICD Code: Z98.890 - Other specified postprocedural states (2) CAD (coronary artery disease) ICD Code: I25.10 - Atherosclerotic heart disease of [place] coronary artery without angina pectoris Status: Chronic (3) Glaucoma ICD Code: H40.9 - Unspecified glaucoma Status: Chronic (4) Hypothyroidism ICD Code: E03.9 - Hypothyroidism, unspecified (5) Hyperglycemia ICD Code: R73.9 - Hyperglycemia, unspecified Status: Acute (6) Hypocalcemia ICD Code: E83.51 - Hypocalcemia Status: Acute (7) Anemia ICD Code: D64.9 - Anemia, unspecified (8) Constipation, acute ICD Code: K59.00 - Constipation, unspecified Brief History Mr Monique is a 67 year-old male who presented with intractable mechanical back pain and hernandez evidence of L2, L3, L4 lower extremity radiculopathy. He had history of a L4-5, L5-S1 laminectomy and fusion done years ago. He has failed maximum nonsurgical management including multiple modalities of conservative treatment as well as pain management interventions by an interventional pain specialist. A surgical decompression and arthrodesis were indicated as a last resort. CBC/BMP: 01/20/18 0710 01/20/18 0710 Significant Findings Laboratory Tests Test 01/20/18 07:10 Red Blood Count 2.41 MIL/MM3 (4.50-5.90) Hemoglobin 7.4 GM/DL (13.0-17.0) Hematocrit 22.0 % (39.0-51.0) Neutrophils (%) (Auto) 76.4 % (16.0-70.0) Monocytes (%) (Auto) 10.5 % (0.0-8.0) Lymphocytes # (Auto) 0.8 TH/MM3 (1.0-4.8) Total Protein 6.0 GM/DL (6.4-8.2) Albumin 2.4 GM/DL (3.4-5.0) Estimat Glomerular Filtration Rate 58 ML/MIN (>89) Hospital Course Mr. Monique underwent a L1-L2, L2-L3, L3-L4 laminectomy, interbody arthrodhesis using PEEK cage and autologous bone graft, L3-4, L4-L5 instrumental fixation using transpedicular screws and rods, L1-L2, L2-L3, L3-L4 posterolateral fusion using autologous bone graft and demineralized bone matrix, microsurgical dissection on Jan 16, 2018 for degenerative disease with spondylolisthesis and secondary stenosis. His surgery went well. His postoperative pain controlled. He was discharged home in stable conditions. Pt Condition on Discharge: Stable Discharge Disposition: Disch w/ Home Health Serv Discharge Instructions DIET: Follow Instructions for: Heart Healthy Diet ACTIVITIES You can perform: Weight Bearing As Sharda ADDITIONAL Activity Instructio: Avoid strenuous activities, heavy lifting over 5 lbs, overhead activities, repetitive bending, twisting, pushing, pulling or any activities which might result in stress over the spine. Avoid situation that will put at risk for falls. Use assistive device as needed for walking Wear provided back brace when out of bed Follow up Referrals: SNF/[facility]/ with [facility]: [phone] New Medications: Hydrocodone-Acetaminophen (Hydrocodone-Acetaminophen) 10-325 mg Tab 1 TAB PO Q8HR for Pain, #90 TAB 0 Refills Walker with Front Wheels (Walker with Front Wheels) 1 Mis Mis EA .XX DIRECTED for MOBILITY, #1 0 Refills Continued Medications: Amitriptyline (Amitriptyline) 10 Mg Tab 10 MG PO HS, TAB Aspirin (Aspirin) 81 Mg Chew 81 MG CHEW DAILY, TAB 0 Refills Calcium Carbonate-Cholecalciferol (Calcium 600 with Vitamin D) 600-400 mg-Unit Tab 1 TAB PO DAILY for Calcium Supplement, TAB 0 Refills Carvedilol (Carvedilol) 3.125 Mg Tab 3.125 MG PO BID, #60 TAB 0 Refills Cyclobenzaprine (Flexeril) 10 Mg Tab 10 MG PO TID for Muscle Spasm, #90 TAB 0 Refills Dexlansoprazole (Dexilant) 60 Mg Cap.drSalimabp 60 MG PO DAILY Docusate Sodium (Colace) 100 Mg Capsule 100 MG PO DAILY Glucosamine/D3/Boswellia Rosy (Osteo Bi-Flex Caplet) 1,500 Mg-400 Unit-100 Mg Tablet 1 CAP PO DAILY Latanoprost Opth Drops (Latanoprost Opth Drops) 0.005% Drops 1 DROP EACH EYE HS for Glaucoma, #2.5 ML 0 Refills Refrigerate until opened. Levocetirizine (Levocetirizine) 5 Mg Tab 5 MG PO DAILY for Allergy Management, #30 TAB 0 Refills Levothyroxine (Levothyroxine) 137 Mcg Tab 137 MCG PO DAILY for Thyroid, #30 TAB 0 Refills Losartan (Losartan) 25 Mg Tab 25 MG PO DAILY for Blood Pressure Management, #30 TAB 0 Refills Multiple Vitamin (Multi-Vitamin Daily) 1 Tab Tab 1 TAB PO DAILY for Nutritional Supplement, TAB 0 Refills Rosuvastatin (Crestor) 10 Mg Tab 10 MG PO DAILY for Cholesterol Management, #30 TAB 0 Refills Simethicone (Simethicone) 180 Mg Cap 180 MG PO QID PRN for GAS RETENTION, CAP 0 Refills Ticagrelor (Brilinta) 90 Mg Tab 90 MG PO BID for Blood Clot Prevention, #60 TAB 0 Refills Tramadol (Tramadol) 50 Mg Tab 50 MG PO Q4H PRN for PAIN, TAB 0 Refills Charlee Esteves Jan 22, 2018 13:17
== END 2018-01-20 12:08 | disposition home health service (06) | DRG 455 ==
LOC: HSDI 06:05 → N05B 19:08
PROVIDERS: ADMIT Neurological Surgery; ATTEND Neurological Surgery
PROC: 0SG1071 Fusion of 2 or more Lumbar Vertebral Joints with Autologous Tissue Substitute, Posterior Approach, Posterior Column, Open Approach (ICD-10-PCS; 2018-01-16)
PROC: 01NB0ZZ Release Lumbar Nerve, Open Approach (ICD-10-PCS; 2018-01-16)
PROC: 0SP004Z Removal of Internal Fixation Device from Lumbar Vertebral Joint, Open Approach (ICD-10-PCS; 2018-01-16)
PROC: 0SG10AJ Fusion of 2 or more Lumbar Vertebral Joints with Interbody Fusion Device, Posterior Approach, Anterior Column, Open Approach (ICD-10-PCS; 2018-01-16)
PROC: 0SB20ZZ Excision of Lumbar Vertebral Disc, Open Approach (ICD-10-PCS; 2018-01-16)
PROC: 4A11X4G Monitoring of Peripheral Nervous Electrical Activity, Intraoperative, External Approach (ICD-10-PCS; 2018-01-16)
PROC: 0SG10AJ Fusion of 2 or more Lumbar Vertebral Joints with Interbody Fusion Device, Posterior Approach, Anterior Column, Open Approach (ICD-10-PCS; principal; 2018-01-16 08:30)
DX: M51.16 Intervertebral disc disorders with radiculopathy, lumbar region (principal); E83.51 Hypocalcemia; I10 Essential (primary) hypertension; E03.9 Hypothyroidism, unspecified; M48.061 Spinal stenosis, lumbar region without neurogenic claudication; M43.16 Spondylolisthesis, lumbar region; I25.10 Atherosclerotic heart disease of native coronary artery without angina pectoris; I25.2 Old myocardial infarction; H40.9 Unspecified glaucoma; R73.9 Hyperglycemia, unspecified; D64.9 Anemia, unspecified; K59.00 Constipation, unspecified; Z95.5 Presence of coronary angioplasty implant and graft; Z88.5 Allergy status to narcotic agent; Z88.8 Allergy status to other drugs, medicaments and biological substances; Z98.1 Arthrodesis status
CPT/HCPCS: 36430; 72100; 76000; 80048; 80053; 82805; 83036; 83735; 84100; 84155; 84439; 84443; 85014; 85018; 85025; 85027; 86850; 86900; 86901; 86920; 94150; C1713; J0131; J0690; J1100; J1170; J1580; J1644; J2250; J2270; J2370; J2405; J3010; J3370; J3480; J7040; J7050; J7120; L0484; P9016